=== PATIENT | female | born 1935 | race Caucasian/White ===

== ENCOUNTER 2020-05-25 17:27 | Inpatient (IN) ==
--- NOTE | 2020-05-25 18:14 | Emergency Department Note ---
History of Present Illness General Chief complaint: Fall Stated complaint: shoulder pain Time Seen by Provider: 05/25/20 17:58 Source: patient and family (Daughter who is at the bedside) Mode of arrival: ambulatory Limitations: other (He does have a history of dementia) History of Present Illness This patient is an 84-year-old female who lives at home with her , comes in after falling. She was hanging up her coat and fell. They found her on the floor they heard a scream and there was a TV on top of her. She is only complaint of shoulder pain she may have hit her head and her face to the do not think she lost consciousness but it was unwitnessed. She said no recent illness. No chest pain shortness of breath or abdominal pain. No focal numbness or weakness she is had Covid vaccine x2. No recent illness prior. Home Medications Medication Instructions Recorded Confirmed Type docusate sodium 50 mg PO DAILY 05/25/20 05/25/20 History lisinopril 10 mg PO DAILY 05/25/20 05/25/20 History meclizine 25 mg PO TID PRN 05/25/20 05/25/20 History metoprolol succinate 25 mg PO DAILY 05/25/20 05/25/20 History multivitamin 1 tab PO DAILY 05/25/20 05/25/20 History simvastatin 20 mg PO HS 05/25/20 05/25/20 History verapamil 180 mg PO DAILY 05/25/20 05/25/20 History warfarin 2 mg PO 4XWK 05/25/20 05/25/20 History warfarin 3 mg PO 3XWK 05/25/20 05/25/20 History Allergies Allergy/AdvReac Type Severity Reaction Status Date / Time Sulfa (Sulfonamide Allergy Intermediate Hives Verified 05/25/20 18:27 Antibiotics) Penicillins Allergy Unknown rash Verified 05/25/20 18:27 Past Med/Surg History Medical History (Updated 05/25/20 @ 22:42 by Pa Capellan MD) Degenerative arthritis of knee, bilateral Social History Smoking Status: Former smoker Tobacco Type: Cigarettes Feels Safe at Home: Yes Review of Systems Unobtainable due to cognitive status Physical Exam Vital Signs Vital Signs - 24 hr 05/25/20 17:35 05/25/20 18:20 05/25/20 20:00 Temperature 36.6 C Temperature Source Oral Pulse Rate 58 L 68 Pulse Rate from SpO2 Sensor 71 Respiratory Rate 16 17 Blood Pressure 170/30 H 187/77 H Blood Pressure Mean 76 113 Blood Pressure Position Lying Pulse Oximetry 97 98 90 Oxygen Delivery Method Room Air Room Air Room Air Sepsis Recent Fever Within 48 Hours No Sepsis New/Unexplained Change in Mental Status No Sepsis Action Taken by Nursing No Action Required 05/25/20 20:30 05/25/20 21:00 05/25/20 21:05 Temperature Temperature Source Pulse Rate 69 73 69 Pulse Rate from SpO2 Sensor 68 Respiratory Rate 14 20 17 Blood Pressure 105/59 L 136/112 H 154/67 H Blood Pressure Mean 74 120 96 Blood Pressure Position Pulse Oximetry 94 94 97 Oxygen Delivery Method Room Air Room Air Room Air Sepsis Recent Fever Within 48 Hours Sepsis New/Unexplained Change in Mental Status Sepsis Action Taken by Nursing 05/25/20 21:30 05/25/20 21:47 05/25/20 22:31 Temperature Temperature Source Pulse Rate 60 67 59 L Pulse Rate from SpO2 Sensor 59 L Respiratory Rate 15 19 15 Blood Pressure 150/61 H 150/61 H 173/28 H Blood Pressure Mean 90 90 76 Blood Pressure Position Pulse Oximetry 96 96 96 Oxygen Delivery Method Room Air Room Air Room Air Sepsis Recent Fever Within 48 Hours Sepsis New/Unexplained Change in Mental Status Sepsis Action Taken by Nursing General: Well developed well nourished older female has baseline dementia and is able answer questions but not reliably due to memory issues in no acute distress, breathing comfortably on room air. Normal speech HEENT: Normal cephalic atraumatic. Pupils are equal round and reactive to light. Extraocular movements are intact. Oropharynx is pink with moist mucous membranes. No swelling of the mouth lips or tongue. Neck: Supple with a midline trachea. No meningeal signs or stiffness, no JVD or bruits. No Stridor. Chest: Clear to auscultation bilaterally. No wheezes or rhonchi. No increased work of breathing. Heart: Regular rate and rhythm without murmurs or gallops. Abdomen: Soft nontender, nondistended without rebound guarding or rigidity. Extremities: No cyanosis clubbing or edema. No calf tenderness or assymetry. The shoulder is swollen on the right and has pain with movement. Distally, she has neurologic and neurovascular intact Spine/Back. Non tender to palpation. No CVA tenderness Skin: Good turgor without rashes. Neurologic exam: Cranial nerves two through 12 are intact. Motor and sensation are intact and symmetrical throughout. Course Administered Medications Discontinued Medications Morphine Sulfate (Morphine Sulfate 4 Mg/Ml 1 Ml Carp\Vial) 4 mg IV NOW STA Stop: 05/25/20 18:36 Last Admin: 05/25/20 18:51 Dose: 4 mg Documented by: [id number] Morphine Sulfate (Morphine Sulfate 4 Mg/Ml 1 Ml Carp\Vial) 4 mg IV NOW STA Stop: 05/25/20 20:58 Last Admin: 05/25/20 21:01 Dose: 4 mg Documented by: [id number] Ondansetron HCl (Ondansetron Inj 2 Mg/Ml 2 Ml Vial) 4 mg IV NOW STA Stop: 05/25/20 18:36 Last Admin: 05/25/20 18:51 Dose: 4 mg Documented by: [id number] Medical Decision Making Differential Diagnosis Trauma, electrolyte or metabolic abnormality, shoulder fracture, dislocation, syncope, arrhythmia, intracranial hemorrhage Medical Records Attestation: I reviewed the patient's medical records. Home Medications Current Medication List: was personally reviewed by me Laboratory Data Attestation: I reviewed the patient's lab results. Result diagrams: 05/25/20 18:44 05/25/20 18:44 Lab Results 05/25/20 05/25/20 05/25/20 Range/Units 18:44 18:44 18:44 WBC 9.11 (4.8-10.8) K/uL RBC 4.08 L (4.2-5.4) M/uL Hgb 13.0 (12.0-16.0) g/dL Hct 38.4 (37-47) % MCV 94.1 (80-100) fL MCH 31.9 (25-34) pg MCHC 33.9 (32-36) g/dL RDW Std Deviation 46.9 H (36.4-46.3) fL RDW Coeff of Ranjit 13.6 (11.5-14.5) % Plt Count 187 (130-400) K/uL MPV 10.4 (7.4-10.4) fL Immature Gran % (Auto) 0.2 % Neut % (Auto) 79.0 % Lymph % (Auto) 14.6 % [place] % (Auto) 5.4 % Eos % (Auto) 0.7 % Baso % (Auto) 0.1 % Neut # (Auto) 7.20 H (1.4-6.5) K/uL Lymph # (Auto) 1.33 (1.2-3.4) K/uL [place] # (Auto) 0.49 (0.11-0.59) K/uL Eos # (Auto) 0.06 (0-0.5) K/uL Baso # (Auto) 0.01 (0-0.2) K/uL Immature Gran # (Auto) 0.02 (0.00-0.02) K/uL PT 19.8 H (9.0-12.0) Seconds INR 2.1 H (0.9-1.1) APTT 28.2 (21.0-31.0) Seconds PTT Ratio 1.1 Sodium 141 (136-145) mmol/L Potassium 4.6 (3.5-5.1) mmol/L Chloride 110 H (98-107) mmol/L Carbon Dioxide 26 (21-32) mmol/L Anion Gap 5.0 (3-11) BUN 36 H (7-18) mg/dl Creatinine 1.23 H (0.6-1.2) mg/dl Est Cr Clr Drug Dosing 31.7 ml/min Est GFR ( Amer) 46.3 Est GFR (Non-Af Amer) 40.0 BUN/Creatinine Ratio 28.9 H (10-20) Glucose 109 H (70-99) mg/dl Calcium 9.5 (8.5-10.1) mg/dl Total Bilirubin 0.3 (0.2-1) mg/dl AST 17 (15-37) U/L ALT 21 (12-78) U/L Alkaline Phosphatase 57 (45-117) U/L Troponin I < 0.015 (0-0.045) ng/ml Total Protein 7.0 (6.4-8.2) gm/dl Albumin 3.6 (3.4-5.0) gm/dl Globulin 3.4 (2.5-4.0) gm/dl Albumin/Globulin Ratio 1.1 (0.9-2) Lipase 198 (73-393) U/L COVID-19 Eval Order SARS-CoV-2, RNA, NAAT (NEGATIVE) 05/25/20 05/25/20 Range/Units 21:46 21:46 WBC (4.8-10.8) K/uL RBC (4.2-5.4) M/uL Hgb (12.0-16.0) g/dL Hct (37-47) % MCV (80-100) fL MCH (25-34) pg MCHC (32-36) g/dL RDW Std Deviation (36.4-46.3) fL RDW Coeff of Ranjit (11.5-14.5) % Plt Count (130-400) K/uL MPV (7.4-10.4) fL Immature Gran % (Auto) % Neut % (Auto) % Lymph % (Auto) % [place] % (Auto) % Eos % (Auto) % Baso % (Auto) % Neut # (Auto) (1.4-6.5) K/uL Lymph # (Auto) (1.2-3.4) K/uL [place] # (Auto) (0.11-0.59) K/uL Eos # (Auto) (0-0.5) K/uL Baso # (Auto) (0-0.2) K/uL Immature Gran # (Auto) (0.00-0.02) K/uL PT (9.0-12.0) Seconds INR (0.9-1.1) APTT (21.0-31.0) Seconds PTT Ratio Sodium (136-145) mmol/L Potassium (3.5-5.1) mmol/L Chloride (98-107) mmol/L Carbon Dioxide (21-32) mmol/L Anion Gap (3-11) BUN (7-18) mg/dl Creatinine (0.6-1.2) mg/dl Est Cr Clr Drug Dosing ml/min Est GFR ( Amer) Est GFR (Non-Af Amer) BUN/Creatinine Ratio (10-20) Glucose (70-99) mg/dl Calcium (8.5-10.1) mg/dl Total Bilirubin (0.2-1) mg/dl AST (15-37) U/L ALT (12-78) U/L Alkaline Phosphatase (45-117) U/L Troponin I (0-0.045) ng/ml Total Protein (6.4-8.2) gm/dl Albumin (3.4-5.0) gm/dl Globulin (2.5-4.0) gm/dl Albumin/Globulin Ratio (0.9-2) Lipase (73-393) U/L COVID-19 Eval [facility] SARS-CoV-2, RNA, NAAT NEGATIVE (NEGATIVE) Imaging Data Attestation: I personally reviewed and interpreted this imaging study as follows: ECG Data Indication: + syncope and + weakness Rate (beats per minute): 64 Rhythm: + normal sinus ECG Intervals/blocks: + Normal QRS, + Normal QT and + Normal DE ECG [place]: + Normal ECG ST segments: + Normal ST segments ECG Findings: + Poor R wave progression Comparison ECG Date: no prior available MDM Narrative This patient comes in described above. She suffered a fall she is on Coumadin her main complaint is shoulder pain she has some obvious swelling. IV access was established. he had been given pain medication on route. She appears co mfortable unless I move the arm. Given the fact she is on Coumadin hit her head I did do a CAT scan of the head neck and face as well as labs and EKG and x-ray. She was reassessed frequently. He did require IV morphine 4 mg several times while she was here which did seem to work well until it wore off and she had more pain. I did a portable x-ray of her humerus and she has a humeral neck fracture with displacement of the fracture. I did look at this at the bedside while redoing the x-ray it showed the daughter who is an orthopedic nurse. We did place her in a sling. CAT scan of the head neck and face were unremarkable. Her INR is 2.1. EKG does not suggest ischemia or arrhythmia. Troponin is not elevated. she has no significant electrolyte or metabolic abnormalities. The patient is followed by Dr. Brandon from orthopedics and I called and talked to Dr. Paez who is covering for Dr. Brandon. He did call and talk to Dr. Brandon who will see the patient in the hospital tomorrow. I did consult Dr. Cordoba who is on for medicine to see her given the fact that she fell and was unwitnessed it was possible syncopal. She is going to hold her Coumadin tonight as she is on this for A. fib and in the event that she could have surgery in the next day or so. Daughter was happy with the plan and she will be admitted for these measures Continuous cardiac monitoring: Order was placed in the EMR for continuous monitoring. The patient was noted to be in normal sinus rhythm with a pulse of 60. Impression & Plan Fracture, humerus, Fall, Anticoagulant long-term use, Dementia, COVID-19 ruled out by laboratory testing Discharge Plan Visit Data Chief Complaint: Fall Stated Complaint: shoulder pain ED Provider: aP Capellan Discharge Problem: Fracture, humerus, Fall, Anticoagulant long-term use, Dementia, COVID-19 ruled out by laboratory testing Patient Disposition: Admitted As Inpatient Forms Stand Alone Forms: [facility] Prescriptions Prescriptions: No Action multivitamin Tablet 1 tab PO DAILY RF: 0 verapamil 180 mg tablet extended release 180 mg PO DAILY RF: 0 docusate sodium 50 mg Capsule 50 mg PO DAILY RF: 0 meclizine 25 mg Tablet 25 mg PO TID PRN (Reason: Dizziness) RF: 0 simvastatin 20 mg tablet 20 mg PO HS RF: 0 lisinopril 10 mg tablet 10 mg PO DAILY RF: 0 warfarin 2 mg tablet 2 mg PO 4XWK RF: 0 warfarin 2 mg tablet 3 mg PO 3XWK RF: 0 metoprolol succinate 25 mg tablet extended release 24 hr 25 mg PO DAILY RF: 0 Referrals Referrals: Asmita Wasserman DO [Primary Care Provider] - Discharge Problem: Fracture, humerus Qualifiers: Encounter type: initial encounter Humerus Location: surgical neck Fracture type: closed Fracture morphology: unspecified fracture morphology Fracture alignment: displaced Laterality: right Qualified Code(s): S42.211A - Unspecified displaced fracture of surgical neck of right humerus, initial encounter for closed fracture Fall Qualifiers: Encounter type: initial encounter Qualified Code(s): W19.XXXA - Unspecified fall, initial encounter Dementia Qualifiers: Dementia type: unspecified type Dementia behavioral disturbance: without behavioral disturbance Qualified Code(s): F03.90 - Unspecified dementia without behavioral disturbance
[2020-05-25] MEDS ORDERED: MoRPHine SULFATE 4 MG/ML 1 ML CARP\\VIAL IV STA ×2 (18:35→20:57)
[2020-05-25] MEDS ORDERED: ONDANSETRON INJ 2 MG/ML 2 ML VIAL IV STA (18:35)
--- NOTE | 2020-05-25 18:36 | XRay Report ---
XR chest 1V portable CLINICAL HISTORY: Atypical chest pain COMPARISON STUDY: 01/26/2015 FINDINGS: The heart is the upper limits of normal in size. There is aortic tortuosity. There is no fa ilure. There is no focal pulmonary consolidation. There are no pleural effusions. There is an acute p roximal right humeral fracture.[ IMPRESSION: 1. No active disease in the chest 2. Acute displaced right humeral neck fracture. ACT 112: Negative or not required by law. Electronically signed by: Teto Garber M.D. 05/25/2020 6:34 PM
--- NOTE | 2020-05-25 18:36 | XRay Report ---
XR shoulder RT min 2V routine CLINICAL HISTORY: Right shoulder pain status post trauma COMPARISON: None. DISCUSSION: There is an acute displaced right humeral neck fracture. No dislocation is visualized the provided images. IMPRESSION: Acute displaced right humeral neck fracture ACT 112: Negative or not required by law. Electronically signed by: Teto Garber M.D. 05/25/2020 6:35 PM
[2020-05-25 18:59] LABS: Basophils # (auto) 0.01 K/uL (0-0.2); Basophils % (auto) 0.1 %; Eosinophils # (auto) 0.06 K/uL (0-0.5); Eosinophils % (auto) 0.7 %; Hematocrit (blood only) 38.4 % (37-47); Immature Granulocytes # (auto) 0.02 K/uL (0.00-0.02); Immature Granulocytes % (auto) 0.2 %; Lymphocytes # (auto) 1.33 K/uL (1.2-3.4); Lymphocytes % (auto) 14.6 %; Mean Corpuscular Hemoglobin 31.9 pg (25-34); Mean Corpuscular Hgb Conc 33.9 g/dL (32-36); Mean Corpuscular Volume 94.1 fL (80-100); Mean Platelet Volume 10.4 fL (7.4-10.4); Monocytes # (auto) 0.49 K/uL (0.11-0.59); Monocytes % (auto) 5.4 %; Platelet Count 187 K/uL (130-400); RDW Coefficient of Variation 13.6 % (11.5-14.5); RDW Standard Deviation 46.9 fL (36.4-46.3); Red Blood Count 4.08 M/uL (4.2-5.4); White Blood Count 9.11 K/uL (4.8-10.8)
[2020-05-25 19:11] LABS: INR 2.1 (0.9-1.1); Partial Thromboplastin Ratio 1.1; Partial Thromboplastin Time 28.2 Seconds (21.0-31.0); Prothrombin Time 19.8 Seconds (9.0-12.0)
--- NOTE | 2020-05-25 19:13 | CT Scan Report ---
CT head/brain wo con CLINICAL HISTORY: Head pain status post trauma COMPARISON STUDY: No previous studies for comparison. TECHNIQUE: Axial CT of the brain is performed from the vertex to the skull base. IV contrast was not administered for this examination. A dose lowering technique was utilized adhering to the principles of ALARA. CT DOSE: FINDINGS: No intra or extra-axial mass lesions are visualized. There is no CT evidence of acute cortical infarc tion. There is no evidence of midline shift. There is no acute hemorrhage. No calvarial fractures ar e visualized. There are patchy white matter hypodensities likely on a small vessel basis. There is no evidence of pathologic ventricular dilatation. There is mucosal fluid/thickening within the right maxillary sinus. IMPRESSION: No acute intracranial findings ACT 112: Negative or not required by law. Electronically signed by: Teto Garber M.D. 05/25/2020 7:12 PM
--- NOTE | 2020-05-25 19:15 | CT Scan Report ---
CT OF THE CERVICAL SPINE CLINICAL HISTORY: Neck pain status post trauma COMPARISON STUDY: No previous studies for comparison. CT DOSE: 1097.27 mGy.cm TECHNIQUE: CT scan of the cervical spine was performed from the skull base to the thoracic inlet. Rhona ges are reviewed in the axial, sagittal, and coronal planes. IV contrast was not administered for thi s examination. A dose lowering technique was utilized adhering to the principles of ALARA. FINDINGS: The visualized portions of the lung apices reveal no evidence of pneumothorax. The prevertebral soft tissues are normal. No fractures or subluxations are visualized. There is moderate multilevel degenerative change with multilevel spinal stenosis and multilevel reyes inal narrowing. IMPRESSION: No evidence of acute fracture or traumatic subluxation. ACT 112: Negative or not required by law. Electronically signed by: Teto Garber M.D. 05/25/2020 7:13 PM
--- NOTE | 2020-05-25 19:17 | CT Scan Report ---
CT facial bones wo con CT DOSE: CLINICAL HISTORY: Facial pain status post trauma COMPARISON STUDY: No previous studies for comparison. TECHNIQUE: Helical images were acquired in the transverse plane. The study was reviewed and analyzed on the independent 3-D workstation. A dose lowering technique was utilized adhering to the principle s of ALARA. The pterygoid plates appear intact. The zygomatic arches appear intact. The globes appear intact. There is no evidence of orbital emphysema. The orbital sanders and floor appear intact. The mandibular condyles appear intact. Arthritic changes are present within the TMJs. There are inflammatory changes within the right maxillary sinus. IMPRESSION: No facial fractures identified. ACT 112: Negative or not required by law. Electronically signed by: Teto Garber M.D. 05/25/2020 7:16 PM
[2020-05-25 19:23] LABS: Albumin Level 3.6 gm/dl (3.4-5.0); Aspartate Aminotransferase 17 U/L (15-37); BUN Creatinine Ratio 28.9 (10-20); Blood Urea Nitrogen 36 mg/dl (7-18); Calcium 9.5 mg/dl (8.5-10.1); Carbon Dioxide 26 mmol/L (21-32); Chloride 110 mmol/L (98-107); Creatinine Clr Calc Pharmacy 31.7 ml/min; Est GFR (African American) 46.3; Glucose 109 mg/dl (70-99); Lipase 198 U/L (73-393); Potassium 4.6 mmol/L (3.5-5.1); Sodium 141 mmol/L (136-145)
[2020-05-25 19:28] LABS: Alanine Aminotransferase 21 U/L (12-78); Albumin Globulin Ratio 1.1 (0.9-2); Alkaline Phosphatase 57 U/L (45-117); Bilirubin,Total 0.3 mg/dl (0.2-1); Globulin 3.4 gm/dl (2.5-4.0); Troponin I < 0.015 ng/ml (0-0.045)
--- NOTE | 2020-05-25 22:35 | History and Physical Report ---
DATE OF ADMISSION: 05/25/2020 CHIEF COMPLAINT: Status post fall and right humerus fracture. 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 She lives with her . She walks without any support as per the daughter. She was hanging up her coat and fell. They found her on the floor and there was TV on top of her. Her only complaint was shoulder pain. No loss of consciousness. In the imaging studies in the ER, CT of the head, facial CT, cervical spine CT, chest x-ray and shoulder x-ray was done showing acute displaced right humeral neck fracture. Rest of the imaging studies were okay. She is on Coumadin and INR is 2.1. ER talked to orthopedics and they want to hold Coumadin and will be evaluated in the a.m. The patient's only complaint is pain in the right shoulder and arm region. She was also placed on morphine and she was hard of hearing and also has dementia. All questions were answered by the daughter. As per daughter she has dementia, but she can walk for about 1-2 blocks and also can climb steps okay. No recent fever, chills. No cough, no nausea, no abdominal pain, no complaint of chest pain or abdominal pain, no shortness of breath, no diarrhea. Otherwise, appetite is good. She is sleeping okay. ALLERGIES: SULFA ANTIBIOTICS, PENICILLIN. PAST MEDICAL HISTORY: As mentioned above. PAST SURGICAL HISTORY: Colonoscopy with biopsy, removal of oviducts, cataract surgery, total hysterectomy. MEDICATIONS: The patient is on Colace 100 mg p.o. daily, lisinopril 10 mg p.o. daily, meclizine 25 mg p.o. t.i.d. p.r.n., metoprolol succinate 25 mg p.o. daily, multivitamin 1 tablet p.o. daily, simvastatin 20 mg p.o. at bedtime, verapamil 180 mg p.o. daily, Coumadin 2 mg 4 times a week and 3 mg 3 times a week. FAMILY HISTORY: Significant for father had COPD. Mother had stroke. SOCIAL HISTORY: , lives with . No smoking. Alcohol occasionally. No drug use. REVIEW OF SYSTEMS: As per HPI. Could not complete review of systems as patient is somewhat confused at this time. PHYSICAL EXAMINATION: VITAL SIGNS: Temperature 36.6, pulse 69, respirations 17, blood pressure 154/67, oxygen 97% on room air. HEENT: Slight bruise on the right brow region. Pupils equal, round, and reactive to light. Oral mucosa dry. NECK: No JVD or neck masses. CARDIOVASCULAR: S1, S2 heard. Ejection murmur, systolic murmur in the aortic area. No gallop. RESPIRATORY SYSTEM: Normal AP diameter. No accessory muscle use. No wheezing, no crackles. ABDOMEN: Soft, bowel sounds present, nontender. No distention. CENTRAL NERVOUS SYSTEM: Alert and awake. Obeys simple commands. No facial droop. Speech is clear. EXTREMITIES: No edema, no erythema in lower extremities seen, right upper extremity is flexed. LABORATORY DATA: WBC 9.1, hemoglobin 13, hematocrit 38.4, platelets 187. PT 19.8, INR 2.1. Sodium 141, potassium 4.6, chloride 110, bicarbonate 26, BUN 36, creatinine 1.2, serum glucose 109, calcium 9.5, total bilirubin 0.3, AST 17, ALT 21, alkaline phosphatase 57. Troponin I less than 0.015. Lipase 198. Chest x-ray, no acute disease in the chest, acute displaced right humeral fracture. CT of the head, no acute intracranial findings. Facial CT, no facial fractures identified. Cervical spine CT, no evidence of acute fracture or traumatic subluxation. Shoulder x-ray, acute displaced right humeral fracture. EKG: Normal sinus rhythm with rate of 64, no acute ST changes seen. ASSESSMENT AND PLAN: This is an 84-year-old female who presents with mechanical fall and right humerus fracture. 1. Mechanical fall, right humerus, acute displaced right humeral neck fracture. Plan for sling. Pain control. We will keep her n.p.o., IV fluids, and consult orthopedics for further recommendation. PT and OT when stable. 2. Atrial fibrillation. Continue metoprolol and verapamil. We will hold Coumadin for possible procedures. INR is 2.1. Follow PT/INR daily. 3. Hyperlipidemia. Continue statin. 4. Alzheimer dementia, monitor for any delirium. Daughter wants to stay in the patient's room. 5. Hypertension. Continue lisinopril, verapamil and metoprolol. Monitor blood pressure. 6. Hyperlipidemia, on statin. 7. Chronic diastolic congestive heart failure. Getting gentle fluids, not on diuretics. Monitor for volume overload. 8. Chronic constipation, stool softeners as needed. 9. Deep venous thrombosis prophylaxis, sequential compression devices for now. 10. Disposition: Closely monitor in medical floor. PT and OT prior to discharge. Social service to help with discharge planning. Level 1 full code as per discussion with daughter. JOSSELYN
[2020-05-25] MEDS ORDERED: D5W AND NSS 1,000 ML IV SCH (22:58)
[2020-05-25] MEDS ORDERED: ACETAMINOPHEN 325 MG TAB PO PRN (22:58)
[2020-05-25] MEDS ORDERED: ONDANSETRON INJ 2 MG/ML 2 ML VIAL IV PRN (22:58)
[2020-05-25] MEDS: HYDROmorphone INJ 0.5 MG/0.5 ML SYR IV PRN (23:10)
[2020-05-25] MEDS ORDERED: MECLIZINE HCL 25 MG TAB PO PRN (23:16)
[2020-05-26] MEDS: HYDROmorphone INJ 0.5 MG/0.5 ML SYR IV PRN ×6 (01:55→23:21)
[2020-05-26 05:32] LABS: Basophils # (auto) 0.02 K/uL (0-0.2); Basophils % (auto) 0.2 %; Eosinophils # (auto) 0.02 K/uL (0-0.5); Eosinophils % (auto) 0.2 %; Hematocrit (blood only) 35.4 % (37-47); Hemoglobin 11.9 g/dL (12.0-16.0); Immature Granulocytes # (auto) 0.04 K/uL (0.00-0.02); Immature Granulocytes % (auto) 0.4 %; Lymphocytes # (auto) 1.12 K/uL (1.2-3.4); Lymphocytes % (auto) 11.9 %; Mean Corpuscular Hemoglobin 31.6 pg (25-34); Mean Corpuscular Hgb Conc 33.6 g/dL (32-36); Mean Corpuscular Volume 93.9 fL (80-100); Monocytes # (auto) 0.93 K/uL (0.11-0.59); Monocytes % (auto) 9.9 %; Neutrophils # (auto) 7.29 K/uL (1.4-6.5); Neutrophils % (auto) 77.4 %; Platelet Count 166 K/uL (130-400); RDW Coefficient of Variation 13.6 % (11.5-14.5); RDW Standard Deviation 46.7 fL (36.4-46.3); Red Blood Count 3.77 M/uL (4.2-5.4); White Blood Count 9.42 K/uL (4.8-10.8)
[2020-05-26 05:47] LABS: INR 2.2 (0.9-1.1); Prothrombin Time 20.7 Seconds (9.0-12.0)
[2020-05-26 05:49] LABS: BUN Creatinine Ratio 25.8 (10-20); Calcium 8.7 mg/dl (8.5-10.1); Est GFR (African American) 50.2; Est GFR (Non-African American) 43.4; Potassium 4.4 mmol/L (3.5-5.1)
[2020-05-26] MEDS: MULTIVITAMIN TAB PO SCH (08:27)
[2020-05-26] MEDS: METOPROLOL SUCC 25MG EXT REL TAB PO SCH (08:27)
[2020-05-26] MEDS: VERAPAMIL HCL 180 MG TABCR PO SCH (08:27)
[2020-05-26] MEDS: lisinopril 10 MG TAB PO SCH (08:27)
[2020-05-26] MEDS: DOCUSATE SODIUM SYRUP 100 MG/10 ML UDC PO SCH (08:27)
--- NOTE | 2020-05-26 10:08 | Electrocardiogram Report ---
Test Reason : Blood Pressure : / mmHG Vent. Rate : 064 BPM Atrial Rate : 064 BPM P-R Int : 202 ms QRS Dur : 074 ms QT Int : 390 ms P-R-T Axes : 033 053 050 degrees QTc Int : 402 ms Poor data quality, interpretation may be adversely affected Normal sinus rhythm Septal infarct , age undetermined vs lead placement Abnormal ECG No previous ECGs available Confirmed by Christopher Azevedo ([id number]) on 05/26/2020 10:07:37 AM Referred By: REFERRED SELF Confirmed By:Christopher Azevedo
[2020-05-26] MEDS ORDERED: PHYTONADIONE 5 MG in SODIUM CHLORIDE 0.9% 50 ML IV ONE (10:15)
--- NOTE | 2020-05-26 10:22 | Orthopedic Consultation ---
Date of Service May 26, 2020 Assessment & Plan (1) Fracture, humerus: Patient has a completely displaced proximal humerus fracture. She has been admitted by the medicine service and she will be medically optimized. We will get a need to reverse her INR to a limit blood loss. Talk to the hospitalist today by giving her some vitamin K and will check a PT and INR tomorrow. Will likely fix this on Thursday. There were segments of ORIF of a proximal humerus fracture were explained to the patient and her caregiver/daughter. They like to proceed. Informed consent was obtained. In the meantime we will keep her in the sling. She can eat today and Thursday and make her n.p.o. after midnight on Thursday night. We will had to the OR schedule for Thursday. History of Present Illness Reason for Consultation: . Right proximal humerus fracture. Requesting Physician: . Attending Physician: Greer Blue MD . Patient is an 84-year-old female with multiple medical comorbidities most specifically chronic atrial fibrillation, hypertension, elevated cholesterol, and underlying dementia who sustained a fall yesterday at home. This is not witnessed but they found her on the floor. She had acute onset of pain in her shoulder. She is brought to emergency room where x-rays revealed a displaced proximal humerus fracture. She was admitted by the hospitalist service for pain control. There were no other injuries. She did have an extensive work-up which showed no signs of head injury or neck problems. She describes isolated shoulder pain. No pre-existing shoulder problems. Allergies Allergy/AdvReac Type Severity Reaction Status Date / Time Sulfa (Sulfonamide Allergy Intermediate Hives Verified 05/25/20 18:27 Antibiotics) Penicillins Allergy Unknown rash Verified 05/25/20 18:27 Home Medications Medication Instructions Recorded Confirmed Type docusate sodium 50 mg PO DAILY 05/25/20 05/25/20 History lisinopril 10 mg PO DAILY 05/25/20 05/25/20 History meclizine 25 mg PO TID PRN 05/25/20 05/25/20 History metoprolol succinate 25 mg PO DAILY 05/25/20 05/25/20 History multivitamin 1 tab PO DAILY 05/25/20 05/25/20 History simvastatin 20 mg PO HS 05/25/20 05/25/20 History verapamil 180 mg PO DAILY 05/25/20 05/25/20 History warfarin 2 mg PO 4XWK 05/25/20 05/25/20 History warfarin 3 mg PO 3XWK 05/25/20 05/25/20 History Past Med/Surg History Medical History Degenerative arthritis of knee, bilateral Social History Smoking Status: Never smoker Tobacco Type: Cigarettes Hx Alcohol Use: No Hx Substance Use: No Preferred Language: Macedonian Communication Ability: Effective 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 Physical Exam . Physical examination reveals a pleasant slightly demented elderly female. Sitting up in bed looks reasonably comfortable. Her daughter side her bedside. General musculoskeletal exam reveals no tenderness to her neck thoracic spine or lumbar spine. She has no pain with lower extremity motion or left upper extremity motion. Examination of the right arm reveals a be in a sling. Everything is well aligned. Some moderate soft tissue swelling proximally. No breaks in the skin. She can extend flex extend her fingers and wrist appropriately. She got brisk refill with a good distal pulse. Results & Data Results & Data Laboratory Results . Diagnostic Findings . X-rays of the right shoulder reveal a completely displaced 2 part proximal humerus fracture. No signs of underlying shoulder arthritis. CT scans of the head neck and face were reviewed. All negative. PG Care Time/CCT Total # of Minutes Spent Total Time Spent with Patient: Total time spent is greater than 50% in c oordination of care (as documented) at patient's floor/unit and/or counseling patient: Coding Level of Care Code 75110 Inpt Consult Level 4 Diagnoses Fracture, humerus S42.211A Encounter type: initial encounter Fracture alignment: displaced Fracture morphology: unspecified fracture morphology Fracture type: closed Humerus Location: surgical neck Laterality: right (1) Fracture, humerus Encounter type: initial encounter Fracture alignment: displaced Fracture morphology: unspecified fracture morphology Fracture type: closed Humerus Location: surgical neck Laterality: right Qualified Code(s): S42.211A - Unspecified displaced fracture of surgical neck of right humerus, initial encounter for closed fracture
--- NOTE | 2020-05-26 10:35 | Hospitalist Progress Note ---
Date of Service May 26, 2020 Assessment & Plan (1) Fall: (2) Fracture, humerus: Fall at home with right humeral fracture. Shoulder x-ray showed acute displaced right humeral neck fracture. Continue sling Pain control Discussed with orthopedic surgeon. He would like to do surgery to fix the fracture on Thursday. Will need reversal of INR for that. Give IV vitamin K 5 mg We will check INR in the morning Diet resume. Discontinue IV fluids We will keep n.p.o. tomorrow night after midnight (3) Dementia: Redirect as needed Nursing care (4) Paroxysmal atrial fibrillation: Warfarin on hold for surgery We will resume postop (5) Hypertension: Continue home lisinopril and verapamil (6) DVT prophylaxis: Warfarin on hold for now for surgery Continue SCD Call to daughter's number to update her was unanswered. Will try again later Admission and Anticipated Discharge Date Admission Date: May 25, 2020 Subjective Patient seen and examined Patient awake and alert, pleasant but demented Not able to provide any history Acknowledges pain on the right arm. Review of Systems Review of Systems: Unobtainable due to cognitive status Physical Exam Constitutional: + well hydrated; no acute distress Pleasant Eyes: PERRL, conjunctivae normal, anicteric sclerae ENMT: external ear and nose normal, oropharynx normal Respiratory: normal respiratory effort, lungs clear to auscultation Cardiovascular: Rate/Rhythm: regular rate and regular rhythm S1-S2, no pedal edema Gastrointestinal (Abdomen): normal bowel sounds, soft, nontender, no hepatosplenomegaly Musculoskeletal: Right upper extremity in sling Neurologic: Patient is awake, alert, oriented to person only Significant dementia. Not able to provide any history. Follow simple commands Results & Data Results & Data ([facility]) Vital Signs (Past 12 Hours) Vital Signs Temp Pulse Resp BP Pulse Ox 05/26/20 07:33 36.7 C 73 16 159/68 H 96 05/25/20 23:46 165/68 H 05/25/20 23:34 36.8 C 66 22 195/68 H 97 Laboratory Results Laboratory Results - last 24 hr 05/25/20 05/25/20 05/25/20 18:44 18:44 18:44 WBC 9.11 RBC 4.08 L Hgb 13.0 Hct 38.4 MCV 94.1 MCH 31.9 MCHC 33.9 RDW Std Deviation 46.9 H RDW Coeff of Ranjit 13.6 Plt Count 187 MPV 10.4 Immature Gran % (Auto) 0.2 Neut % (Auto) 79.0 Lymph % (Auto) 14.6 Morehouse % (Auto) 5.4 Eos % (Auto) 0.7 Baso % (Auto) 0.1 Neut # (Auto) 7.20 H Lymph # (Auto) 1.33 Morehouse # (Auto) 0.49 Eos # (Auto) 0.06 Baso # (Auto) 0.01 Immature Gran # (Auto) 0.02 PT 19.8 H INR 2.1 H APTT 28.2 PTT Ratio 1.1 Sodium 141 Potassium 4.6 Chloride 110 H Carbon Dioxide 26 Anion Gap 5.0 BUN 36 H Creatinine 1.23 H Est Cr Clr Drug Dosing 31.7 Est GFR ( Amer) 46.3 Est GFR (Non-Af Amer) 40.0 BUN/Creatinine Ratio 28.9 H Glucose 109 H Calcium 9.5 Magnesium Total Bilirubin 0.3 AST 17 ALT 21 Alkaline Phosphatase 57 Troponin I < 0.015 Total Protein 7.0 Albumin 3.6 Globulin 3.4 Albumin/Globulin Ratio 1.1 Lipase 198 COVID-19 Eval Order SARS-CoV-2, RNA, NAAT 05/25/20 05/25/20 05/26/20 21:46 21:46 05:19 WBC RBC Hgb Hct MCV MCH MCHC RDW Std Deviation RDW Coeff of Ranjit Plt Count MPV Immature Gran % (Auto) Neut % (Auto) Lymph % (Auto) [place]house % (Auto) Eos % (Auto) Baso % (Auto) Neut # (Auto) Lymph # (Auto) Morehouse # (Auto) Eos # (Auto) Baso # (Auto) Immature Gran # (Auto) PT 20.7 H INR 2.2 H APTT PTT Ratio Sodium Potassium Chloride Carbon Dioxide Anion Gap BUN Creatinine Est Cr Clr Drug Dosing Est GFR ( Amer) Est GFR (Non-Af Amer) BUN/Creatinine Ratio Glucose Calcium Magnesium Total Bilirubin AST ALT Alkaline Phosphatase Troponin I Total Protein Albumin Globulin Albumin/Globulin Ratio Lipase COVID-19 Eval [facility] SARS-CoV-2, RNA, NAAT NEGATIVE 05/26/20 05/26/20 05:19 05:19 WBC 9.42 RBC 3.77 L Hgb 11.9 L Hct 35.4 L MCV 93.9 MCH 31.6 MCHC 33.6 RDW Std Deviation 46.7 H RDW Coeff of Ranjit 13.6 Plt Count 166 MPV 10.0 Immature Gran % (Auto) 0.4 Neut % (Auto) 77.4 Lymph % (Auto) 11.9 Morehouse % (Auto) 9.9 Eos % (Auto) 0.2 Baso % (Auto) 0.2 Neut # (Auto) 7.29 H Lymph # (Auto) 1.12 L Morehouse # (Auto) 0.93 H Eos # (Auto) 0.02 Baso # (Auto) 0.02 Immature Gran # (Auto) 0.04 H PT INR APTT PTT Ratio Sodium 139 Potassium 4.4 Chloride 111 H Carbon Dioxide 24 Anion Gap 4.0 BUN 30 H Creatinine 1.15 Est Cr Clr Drug Dosing 34.0 Est GFR ( Amer) 50.2 Est GFR (Non-Af Amer) 43.4 BUN/Creatinine Ratio 25.8 H Glucose 129 H Calcium 8.7 Magnesium 2.0 Total Bilirubin AST ALT Alkaline Phosphatase Troponin I Total Protein Albumin Globulin Albumin/Globulin Ratio Lipase COVID-19 Eval Order SARS-CoV-2, RNA, NAAT (1) Fall Encounter type: initial encounter Qualified Code(s): W19.XXXA - Unspecified fall, initial encounter (2) Fracture, humerus Encounter type: initial encounter Fracture alignment: displaced Fracture morphology: unspecified fracture morphology Fracture type: closed Humerus Location: surgical neck Laterality: right Qualified Code(s): S42.211A - Unspecified displaced fracture of surgical neck of right humerus, initial encounter for closed fracture (3) Dementia Dementia behavioral disturbance: without behavioral disturbance Dementia type: unspecified type Qualified Code(s): F03.90 - Unspecified dementia without behavioral disturbance
[2020-05-26] MEDS: ACETAMINOPHEN 325 MG TAB PO SCH ×3 (12:16→23:21)
[2020-05-26] MEDS: SIMVASTATIN 20 MG TAB PO SCH (20:32)
[2020-05-27] MEDS: traMADol HCL 50 MG TABLET PO PRN ×2 (02:11→21:54)
[2020-05-27] MEDS: HYDROmorphone INJ 0.5 MG/0.5 ML SYR IV PRN ×3 (03:21→20:02)
[2020-05-27] MEDS: ACETAMINOPHEN 325 MG TAB PO SCH ×4 (06:22→23:57)
[2020-05-27 06:38] LABS: Hematocrit (blood only) 31.5 % (37-47); Hemoglobin 10.4 g/dL (12.0-16.0); Mean Corpuscular Hemoglobin 31.1 pg (25-34); Mean Corpuscular Volume 94.3 fL (80-100); Mean Platelet Volume 10.3 fL (7.4-10.4); Platelet Count 147 K/uL (130-400); RDW Coefficient of Variation 13.7 % (11.5-14.5); RDW Standard Deviation 47.7 fL (36.4-46.3); Red Blood Count 3.34 M/uL (4.2-5.4); White Blood Count 7.73 K/uL (4.8-10.8)
[2020-05-27 06:55] LABS: BUN Creatinine Ratio 26.3 (10-20); Calcium 8.1 mg/dl (8.5-10.1); Creatinine Clr Calc Pharmacy 40.3 ml/min; Est GFR (African American) 61.7; Est GFR (Non-African American) 53.3; INR 1.2 (0.9-1.1); Prothrombin Time 11.7 Seconds (9.0-12.0)
[2020-05-27] MEDS: METOPROLOL SUCC 25MG EXT REL TAB PO SCH (08:35)
[2020-05-27] MEDS: lisinopril 10 MG TAB PO SCH (08:35)
[2020-05-27] MEDS: VERAPAMIL HCL 180 MG TABCR PO SCH (08:35)
[2020-05-27] MEDS: MULTIVITAMIN TAB PO SCH (08:35)
[2020-05-27] MEDS: DOCUSATE SODIUM SYRUP 100 MG/10 ML UDC PO SCH (08:35)
--- NOTE | 2020-05-27 09:46 | Progress Notes ---
DATE: 05/27/2020 SUBJECTIVE: An 84-year-old female admitted with a right displaced proximal humerus fracture. She is doing okay. Still requiring pain medicine regularly. No other complaints. No new pains. OBJECTIVE: VITAL SIGNS: Temperature is 36.9. Vital signs stable. GENERAL: Shows a pleasant, slightly demented, elderly female. She is sitting up on bed, looks reasonably comfortable. EXTREMITIES: Examination of the right arm reveals the sling to be in place. Some moderate swelling. She can flex and extend her fingers and wrist appropriately. She is neurologically intact. LABORATORY DATA: Hemoglobin 10.4. Hematocrit 31.6. INR 1.2. Electrolytes are stable. ASSESSMENT: An 84-year-old white female admitted with a right displaced proximal humerus fracture. Pain seems to be reasonably controlled, but needing medicine. Her INR is fairly well, reversed. PLAN: We are going to take her to the operating room tomorrow and do ORIF of proximal humerus fracture. The risks and benefits were explained to the patient and her daughter and power of litigation attorney associate today. Informed consent was obtained. At this point, we will hold all blood thinners. We will check an INR in the morning. Keep her n.p.o. after midnight. She will likely need an overnight stay in the hospital after surgery and then discharge hopefully the next day.
--- NOTE | 2020-05-27 10:17 | Hospitalist Progress Note ---
Date of Service May 27, 2020 Assessment & Plan (1) Fall: (2) Fracture, humerus: Fall at home with right humeral fracture. Shoulder x-ray showed acute displaced right humeral neck fracture. Continue sling Pain control Got IV vitamin K 5 mg yesterday INR 1.2 this morning Will be kept NPO PMN for OR tomorrow (3) Dementia: Redirect as needed Nursing care (4) Paroxysmal atrial fibrillation: Warfarin on hold for surgery Will resume postop (5) Hypertension: Controlled Continue home lisinopril and verapamil (6) DVT prophylaxis: Warfarin on hold for now for surgery Continue SCD Admission and Anticipated Discharge Date Admission Date: May 25, 2020 Subjective Patient seen and examined. No overnight event per RN. Patient currently has no complaint. However, history/review of system is diff icult to obtain from patient due to hearing deficit and dementia She is currently lying calmly in bed Physical Exam Constitutional: + well hydrated; no acute distress Eyes: PERRL, conjunctivae normal, anicteric sclerae ENMT: external ear and nose normal, oropharynx normal Respiratory: normal respiratory effort, lungs clear to auscultation Cardiovascular: Rate/Rhythm: regular rate and regular rhythm S1-S2 Gastrointestinal (Abdomen): normal bowel sounds, soft, nontender, no hepatosp lenomegaly Musculoskeletal: Right arm in sling Neurologic: Alert, was able to tell me her name. Not oriented to place or time. Follow simple commands occasionally. Significant hearing deficits Dementia Psychiatric: Pleasant elderly woman. +dementia Results & Data Results & Data ([facility]) Vital Signs (Past 12 Hours) Vital Signs Temp Pulse Resp BP Pulse Ox 05/27/20 07:12 36.9 C 69 16 138/64 94 05/26/20 22:47 37.1 C 68 16 137/62 96 Laboratory Results Laboratory Results - last 24 hr 05/27/20 05/27/20 05/27/20 06:14 06:14 06:14 WBC 7.73 RBC 3.34 L Hgb 10.4 L Hct 31.5 L MCV 94.3 MCH 31.1 MCHC 33.0 RDW Std Deviation 47.7 H RDW Coeff of Ranjit 13.7 Plt Count 147 MPV 10.3 PT 11.7 INR 1.2 H Sodium 143 Potassium 4.0 Chloride 112 H Carbon Dioxide 26 Anion Gap 5.0 BUN 25 H Creatinine 0.97 Est Cr Clr Drug Dosing 40.3 Est GFR ( Amer) 61.7 Est GFR (Non-Af Amer) 53.3 BUN/Creatinine Ratio 26.3 H Glucose 107 H Calcium 8.1 L (1) Fall Encounter type: initial encounter Qualified Code(s): W19.XXXA - Unspecified fall, initial encounter (2) Fracture, humerus Encounter type: initial encounter Fracture alignment: displaced Fracture morphology: unspecified fracture morphology Fracture type: closed Humerus Location: surgical neck Laterality: right Qualified Code(s): S42.211A - Unspecified displaced fracture of surgical neck of right humerus, initial encounter for closed fracture (3) Dementia Dementia behavioral disturbance: without behavioral disturbance Dementia type: unspecified type Qualified Code(s): F03.90 - Unspecified dementia without behavioral disturbance
--- NOTE | 2020-05-27 10:31 | Anesthesiology Consultation ---
Date of Service May 27, 2020 Assessment & Plan (1) Encounter for pre-operative examination: Chart Review Chart Review: entry level recruiter initiated History Height/Weight Height: 5 ft 4 in Weight: 68.4 kg Allergies Allergy/AdvReac Type Severity Reaction Status Date / Time Sulfa (Sulfonamide Allergy Intermediate Hives Verified 05/25/20 18:27 Antibiotics) Penicillins Allergy Unknown rash Verified 05/25/20 18:27 Medications Home Medications Medication Instructions Recorded Confirmed Last Taken docusate sodium 50 mg PO DAILY 05/25/20 05/25/20 05/25/20 lisinopril 10 mg PO DAILY 05/25/20 05/25/20 05/25/20 meclizine 25 mg PO TID PRN 05/25/20 05/25/20 Unknown metoprolol succinate 25 mg PO DAILY 05/25/20 05/25/20 05/25/20 multivitamin 1 tab PO DAILY 05/25/20 05/25/20 05/25/20 simvastatin 20 mg PO HS 05/25/20 05/25/20 Unknown verapamil 180 mg PO DAILY 05/25/20 05/25/20 05/25/20 warfarin 2 mg PO 4XWK 05/25/20 05/25/20 Unknown warfarin 3 mg PO 3XWK 05/25/20 05/25/20 Unknown Active Medications Generic Name Dose Route Start Last Admin Trade Name Freq PRN Reason Stop Dose Admin Acetaminophen 650 mg 05/26/20 12:00 05/27/20 06:22 Acetaminophen 325 Mg Tab PO 06/25/20 11:59 650 mg Q6H IVELISSE Administration Docusate Sodium 50 mg 05/26/20 09:00 05/27/20 08:35 Docusate Sodium Syrup 100 Mg/10 Ml Udc PO 06/25/20 08:59 50 mg DAILY IVELISSE Administration Hydromorphone HCl 0.5 mg 05/26/20 11:43 05/27/20 08:39 Hydromorphone Inj 0.5 Mg/0.5 Ml Syr IV 06/08/20 22:57 0.5 mg Q4H PRN Administration Severe Pain Lisinopril 10 mg 05/26/20 09:00 05/27/20 08:35 Lisinopril 10 Mg Tab PO 06/25/20 08:59 10 mg DAILY IVELISSE Administration Metoprolol Succinate 25 mg 05/26/20 09:00 05/27/20 08:35 Metoprolol Succ 25mg Ext Rel Tab PO 06/25/20 08:59 25 mg DAILY IVELISSE Administration Multivitamins 1 tab 05/26/20 09:00 05/27/20 08:35 Multivitamin Tab PO 06/25/20 08:59 1 tab DAILY IVELISSE Administration Simvastatin 20 mg 05/26/20 21:00 05/26/20 20:32 Simvastatin 20 Mg Tab PO 06/25/20 20:59 20 mg HS IVELISSE Administration Tramadol HCl 50 mg 05/26/20 11:42 05/27/20 02:11 Tramadol Hcl 50 Mg Tablet PO 06/25/20 11:41 50 mg Q4H PRN Administration moderate pain Verapamil HCl 180 mg 05/26/20 09:00 05/27/20 08:35 Verapamil Hcl 180 Mg Tabcr PO 06/25/20 08:59 180 mg DAILY IVELISSE Administration Past Medical History Medical History (Updated 05/27/20 @ 10:35 by Errol Weir DO) CKD (chronic kidney disease), stage III Degenerative arthritis of knee, bilateral Dementia Dyslipidemia Hypertension Hypertension Osteoarthritis Paroxysmal atrial fibrillation Past Surgical History Surgical History (Updated 05/27/20 @ 10:31 by Errol Weir DO) H/O colonoscopy "05/29/11- polyp, path shows no evidence of adenomatous tissue" H/O: hysterectomy S/P cataract surgery Social History Smoking Status: Never smoker Hx Alcohol Use: No Hx Substance Use: No Physical Exam Vital Signs Last Vital Signs Temp 98.4 F 05/27/20 07:12 Pulse 69 05/27/20 07:12 Resp 16 05/27/20 07:12 BP 138/64 05/27/20 07:12 Pulse Ox 94 05/27/20 07:12 Testing Laboratory Results 05/27/20 06:14 05/27/20 06:14 PT 11.7 Seconds (9.0-12.0) 05/27/20 06:14 INR 1.2 (0.9-1.1) H 05/27/20 06:14 APTT 28.2 Seconds (21.0-31.0) 05/25/20 18:44 Laboratory Tests 05/25/20 21:46 SARS-CoV-2, RNA, NAAT NEGATIVE Electrocardiogram Date: 05/25/20 Poor data quality, interpretation may be adversely affected Normal sinus rhythm, rate 64 bpm Septal infarct , age undetermined vs lead placement Abnormal ECG No previous ECGs available Confirmed by Christopher Azevedo ([id number]) on 05/26/2020 10:07:37 AM Chest X-Ray Date: 05/25/20 IMPRESSION: 1. No active disease in the chest 2. Acute displaced right humeral neck fracture.
[2020-05-27] MEDS ORDERED: ceFAZolin 2000MG 2,000 MG/15 ML SYR IV SCH (10:45)
[2020-05-27] MEDS: POLYETHYLENE (MIRALAX) 17 GM PACK PO PRN (18:23)
[2020-05-27] MEDS: SIMVASTATIN 20 MG TAB PO SCH (20:07)
[2020-05-28] MEDS: HYDROmorphone INJ 0.5 MG/0.5 ML SYR IV PRN ×4 (01:36→23:52)
[2020-05-28] MEDS ORDERED: ceFAZolin 2000MG 2,000 MG/15 ML SYR IV SCH (06:00)
[2020-05-28] MEDS: ACETAMINOPHEN 325 MG TAB PO SCH ×4 (06:02→20:27)
[2020-05-28 06:17] LABS: Hematocrit (blood only) 31.5 % (37-47); Hemoglobin 10.7 g/dL (12.0-16.0); Mean Corpuscular Hemoglobin 31.7 pg (25-34); Mean Corpuscular Volume 93.2 fL (80-100); Mean Platelet Volume 9.9 fL (7.4-10.4); Platelet Count 149 K/uL (130-400); RDW Coefficient of Variation 13.5 % (11.5-14.5); RDW Standard Deviation 46.6 fL (36.4-46.3); Red Blood Count 3.38 M/uL (4.2-5.4); White Blood Count 6.41 K/uL (4.8-10.8)
[2020-05-28 06:27] LABS: Prothrombin Time 10.6 Seconds (9.0-12.0)
[2020-05-28 06:44] LABS: BUN Creatinine Ratio 26.2 (10-20); Calcium 8.4 mg/dl (8.5-10.1); Creatinine Clr Calc Pharmacy 35.8 ml/min; Est GFR (African American) 53.6; Est GFR (Non-African American) 46.3; Potassium 3.8 mmol/L (3.5-5.1)
--- NOTE | 2020-05-28 07:24 | History & Physical Bridge Note ---
Date of Service May 28, 2020 History & Physical Bridge Note I have examined the patient, reviewed the History & Physical and in the interval since the performance of the History & Physical I have noted the following changes of clinical significance: no changes noted
[2020-05-28] MEDS: METOPROLOL SUCC 25MG EXT REL TAB PO SCH (08:13)
[2020-05-28] MEDS: DOCUSATE SODIUM SYRUP 100 MG/10 ML UDC PO SCH (08:13)
[2020-05-28] MEDS: lisinopril 10 MG TAB PO SCH (08:13)
[2020-05-28] MEDS: MULTIVITAMIN TAB PO SCH (08:13)
[2020-05-28] MEDS: VERAPAMIL HCL 180 MG TABCR PO SCH (08:14)
--- NOTE | 2020-05-28 09:06 | Progress Notes ---
DATE: 05/28/2020 SUBJECTIVE: An 84-year-old white female admitted with a displaced proximal humerus fracture. She is doing pretty well this morning. Pain seems to be a little bit better. Had a pretty good night's rest last night. OBJECTIVE: VITAL SIGNS: Temperature 36.9. Vital signs stable. GENERAL: Shows a pleasant elderly female. She is lying in bed, looks reasonably comfortable this morning. Sling is in place. Some moderate swelling of her shoulder. She can flex and extend her fingers appropriately. She has got brisk refill. LABORATORY DATA: Hemoglobin 10.7. Hematocrit 31.5. INR 1.0. Electrolytes are stable. ASSESSMENT: An 84-year-old white female with a history of atrial fibrillation with a displaced proximal humerus fracture. Her INR is corrected. We are going to proceed with surgery today. PLAN: We are going to take her to the operating room and do ORIF of right proximal humerus fracture. We will start her on Coumadin postop. Continue medical management as per the medicine service.
[2020-05-28] MEDS ORDERED: EPINEPHrine INJ 1 MG/ML AMP ONE (09:57)
[2020-05-28] MEDS ORDERED: BUPIVACAINE 0.25% 30 ML VIAL ONE (09:57)
[2020-05-28] MEDS ORDERED: BUPIVACAINE/EPINEPHRINE 0.5% MPF 1:200,000 30 ML VIAL ONE (11:01)
[2020-05-28] MEDS ORDERED: ONDANSETRON INJ 2 MG/ML 2 ML VIAL IV PRN ×2 (11:09→15:09)
[2020-05-28] MEDS ORDERED: ePHEDrine sulfate 50 MG/ML AMP IV PRN (11:09)
[2020-05-28] MEDS ORDERED: ATROPINE SULFATE 0.1 MG/ML 10ML SYR IV PRN (11:09)
[2020-05-28] MEDS ORDERED: fentaNYL citrate 100 MCG/2 ML VIAL IV PRN (11:09)
[2020-05-28] MEDS ORDERED: fentaNYL citrate 100 MCG/2 ML VIAL ONE (11:19)
[2020-05-28] MEDS ORDERED: PROPOFOL IV EMULSION 10 MG/ML 20 ML VIAL IV ONE (12:13)
[2020-05-28] MEDS ORDERED: ONDANSETRON INJ 2 MG/ML 2 ML VIAL ONE (12:13)
[2020-05-28] MEDS ORDERED: ePHEDrine sulfate 50 MG/ML SYR ONE (12:13)
--- NOTE | 2020-05-28 14:08 | Fluoroscopy Report ---
FL humerus RT 2V HISTORY: 84 years-old Female RT ORIF PROX HUMERUS acute fracture of the right humerus COMPARISON: Right shoulder radiographs 10/25/2020 TECHNIQUE: 4 spot fluoroscopic images of the right humerus were obtained utilizing 55.1 seconds fluor oscopy time FINDINGS: Status post placement of a lateral plate and screw fixation hardware in the proximal right humerus fi xating the acute fracture. There is improved alignment with minimal persistent lateral displacement. A metallic orthopedic tool projects superolateral to the acromium and proximal humerus, likely flatwork finisher al to the patient. There is no dislocation or new acute fracture identified. IMPRESSION: Fluoroscopic assistance as above. ACT 112: Negative or not required by law. The above report was generated using voice recognition software. It may contain grammatical, syntax o r spelling errors. Electronically signed by: Wing Severino M.D. 05/28/2020 2:06 PM
--- NOTE | 2020-05-28 14:21 | Post Operative Brief Note ---
PG Immediate Post Op with CF Date of Surgery May 28, 2020 Pre & Post Diagnosis Operation Date: 05/28/20 10:55 Pre-Op Diagnosis: Right displaced 2 part proximal humerus fracture Post-Op Diagnosis: Right displaced 2 part proximal humerus fracture I identified the patient and participated in the time-out.: Yes Procedure Operation Date: 05/28/20 10:55 Actual Procedures p Right Open Reduction Internal Fixation Proximal Humerus Fracture(Right) - Kwabena Brandon MD Surgeon Kwabena Brandon MD Export Clerk PATTI Shoemaker Estimated Blood Loss 150 Findings Consistent with Post-Op Diagnosis Fluids 600 cc Anesthesia Type General Regional Complications none Disposition Accompanied Patient To Recovery: No Disposition: Recovery Room
--- NOTE | 2020-05-28 14:54 | Anesthesiology Progress Note ---
Date of Service May 28, 2020 Anesthesia Post Procedure Vital Signs Vital Signs: Temp Pulse Pulse Resp BP Pulse Ox 05/28/20 14:40 74 16 175/65 H 100 05/28/20 14:30 70 16 171/77 H 100 05/28/20 14:24 36.4 C L 84 18 140/64 100 05/28/20 11:02 37.5 C 68 18 116/47 L 96 05/28/20 07:25 36.5 C 63 16 124/62 97 05/28/20 00:00 36.9 C 62 18 130/62 94 05/27/20 20:00 36.7 C 68 14 121/62 95 05/27/20 17:05 62 16 100/57 L 93 05/27/20 15:51 36.8 C 69 17 85/42 L 94 Pain Intensity Right Shoulder: Pain Intensity: 4 Transfer of Care Handoff Completed per policy Notes Mental Status: alert / awake / arousable Patient Amnestic to Procedure: Yes Nausea / Vomiting: adequately controlled Pain: adequately controlled Airway Patency, RR, SpO2: stable & adequate BP & HR: stable & adequate Hydration State: stable & adequate Anesthetic Complications: no major complications apparent and Pt Satisfied with anesthetic care Notes: The patient is awake and comfortable. Her SBP is elevated but her other vital signs are stable.
[2020-05-28] MEDS ORDERED: bisacodyL 10 MG SUPP PR PRN (15:09)
[2020-05-28] MEDS ORDERED: METOCLOPRAMIDE HCL INJ 5 MG/ML 2 ML VIAL IV PRN (15:09)
[2020-05-28] MEDS ORDERED: ALUMINUM/MAGNESIUM SUSP 30 ML UDC PO PRN (15:09)
[2020-05-28] MEDS ORDERED: SODIUM CHLORIDE 0.9% 1000ML 1,000 ML IV SCH (15:09)
[2020-05-28] MEDS ORDERED: NALOXONE HCL 0.4 MG/1 ML VIAL/CARP IV PRN (15:09)
--- NOTE | 2020-05-28 15:15 | Hospitalist Progress Note ---
Date of Service May 28, 2020 Assessment & Plan (1) Fall: (2) Fracture, humerus: Fall at home with right humeral fracture. Shoulder x-ray showed acute displaced right humeral neck fracture. Status post right open reduction and internal fixation of proximal humeral fracture this afternoon Pain control We will get PT/OT evaluation tomorrow (3) Dementia: Redirect as needed Nursing care (4) Paroxysmal atrial fibrillation: Resume warfarin (5) Hypertension: Controlled Continue home lisinopril and verapamil (6) DVT prophylaxis: Resume warfarin Admission and Anticipated Discharge Date Admission Date: May 25, 2020 Subjective Patient seen on return from the OR. Has no complaints at this time. Awake, alert, able to tell me her name. Unable to obtain review of systems due to dementia and hearing deficit Physical Exam Constitutional: + well hydrated; no acute distress Eyes: PERRL, conjunctivae normal, anicteric sclerae ENMT: external ear and nose normal, oropharynx normal Respiratory: normal respiratory effort, lungs clear to auscultation Cardiovascular: Rate/Rhythm: regular rate and regular rhythm Gastrointestinal (Abdomen): normal bowel sounds, soft, nontender, no hepatosplenomegaly Musculoskeletal: Clean dressing over right arm in sling Neurologic: Alert, able to say her name. Not oriented to place or time Occasionally follows simple commands. Significant hearing deficit Dementia Psychiatric: Alert, dementia Results & Data Results & Data ([facility]) Vital Signs (Past 12 Hours) Vital Signs Temp Pulse Pulse Resp BP Pulse Ox 05/28/20 15:00 73 16 135/67 100 05/28/20 14:50 36.4 C L 71 16 138/53 L 99 05/28/20 14:40 74 16 175/65 H 100 05/28/20 14:30 70 16 171/77 H 100 05/28/20 14:24 36.4 C L 84 18 140/64 100 05/28/20 11:02 37.5 C 68 18 116/47 L 96 05/28/20 07:25 36.5 C 63 16 124/62 97 Laboratory Results Laboratory Results - last 24 hr 05/27/20 05/28/20 05/28/20 17:59 06:01 06:01 WBC 6.41 RBC 3.38 L Hgb 10.7 L Hct 31.5 L MCV 93.2 MCH 31.7 MCHC 34.0 RDW Std Deviation 46.6 H RDW Coeff of Ranjit 13.5 Plt Count 149 MPV 9.9 PT INR Sodium 141 Potassium 3.8 Chloride 110 H Carbon Dioxide 27 Anion Gap 4.0 BUN 29 H Creatinine 1.09 Est Cr Clr Drug Dosing 35.8 Est GFR ( Amer) 53.6 Est GFR (Non-Af Amer) 46.3 BUN/Creatinine Ratio 26.2 H Glucose 96 Calcium 8.4 L Blood Type A Positive Antibody Screen NEGATIVE 05/28/20 06:01 WBC RBC Hgb Hct MCV MCH MCHC RDW Std Deviation RDW Coeff of Ranjit Plt Count MPV PT 10.6 INR 1.0 Sodium Potassium Chloride Carbon Dioxide Anion Gap BUN Creatinine Est Cr Clr Drug Dosing Est GFR ( Amer) Est GFR (Non-Af Amer) BUN/Creatinine Ratio Glucose Calcium Blood Type Antibody Screen (1) Fall Encounter type: initial encounter Qualified Code(s): W19.XXXA - Unspecified fall, initial encounter (2) Fracture, humerus Encounter type: initial encounter Fracture alignment: displaced Fracture morphology: unspecified fracture morphology Fracture type: closed Humerus Location: surgical neck Laterality: right Qualified Code(s): S42.211A - Unspecified displaced fracture of surgical neck of right humerus, initial encounter for closed fracture (3) Dementia Dementia behavioral disturbance: without behavioral disturbance Dementia type: unspecified type Qualified Code(s): F03.90 - Unspecified dementia without behavioral disturbance
--- NOTE | 2020-05-28 16:47 | Operative Report ---
Post Operative Report Pre & Post Diagnosis Operation Date: 05/28/20 10:55 Pre-Op Diagnosis: Right displaced 2 part proximal humerus fracture Post-Op Diagnosis: Right displaced 2 part proximal humerus fracture I identified the patient and participated in the time-out.: Yes Procedure Operation Date: 05/28/20 10:55 Actual Procedures p Right Open Reduction Internal Fixation Proximal Humerus Fracture(Right) - Kwabena Brandon MD Surgeon Kwabena Brandon MD Webbing Inspector PATTI Shoemaker Estimated Blood Loss 150 Findings Consistent with Post-Op Diagnosis Operative findings revealed displaced proximal humerus fracture. There was some moderate comminution at the fracture site. There was a fairly vertical fracture line going from inferior medial to superior lateral just below the tuberosity insertion. The fracture was completely displaced with the shaft displaced anterior through the clavipectoral fascia with the clavipectoral fascia between the 2 fracture fragments. Fluids 600 cc Specimens None Drains None Anesthesia Type General Regional Complications none Disposition Accompanied Patient To Recovery: No Disposition: Recovery Room Indications Patient is an 84-year-old fairly active female with some moderate underlying dementia who sustained a fall several days ago. She just tripped and fell and injured her right arm. Acute onset of pain. She had severe pain and was difficult managing this she was moved to the hospital, medically optimized, and indicated for surgical treatment. This fracture was completely displaced. Description of Procedure Operative implants consist of: 1. Synthes 3 hole LCP proximal humerus locking plate. 2. Synthes 3.5 fully threaded cortical screws x2. 3. Synthes 3.5 fully threaded cortical locking screws x12. Patient was taken the operating identified and placed on the operating table supine position but all contact areas were properly padded. IV antibiotics 5 by anesthesia team. A interscalene block had been provided in the holding area. A general anesthetic was implemented. The patient was then placed in the beachchair position using the attendant shoulder positioner. The head of the bed was elevated about 30 to 40 degrees. X-ray was brought in to make sure we can get adequate radiographs. Once this was assured I scrubbed the arm with Hibiclens, prepped with ChloraPrep and draped the right upper extremity in the usual sterile fashion. A deltopectoral approach to the right shoulder was then performed through a oblique incision beginning of the coracoid and extending laterally and distally. Sharp dissection was carried out through subcutaneous tissue down to the level of the deltopectoral interval. The deltopectoral interval was identified and developed. The cephalic vein was identified and retracted laterally and protected throughout the case. The fracture was easily visualized as the shaft was displaced significantly anteriorly through the clavipectoral fascia. I entered the fracture as soon as I split the deltopectoral interval. I then opened up the remainder of the clavipectoral fascia and opened the subacromial space with blunt dissection. The CA ligament was released to allow better visualization. I mobilized the deltoid as well as the pack in the subcoracoid space. Great care was taken to protect the is muscular cutaneous and axillary nerves at all times. The fracture site was debrided. I then placed a single #2 Tycron suture through the supraspinatus at its junction to the tuberosity. I then distracted the fracture and was able to a and anatomically reduce it. I tried to get a reduction clamp across the but it was too transverse to distally to allow for adequate dose for stabilization. Therefore I held it reduced and placed 2 K wires 1 from superior anterior to inferior and posterior and do not form anterior inferior to the superior posterior. Some final x-rays were obtained and the fracture was nearly anatomically reduced. A Synthes proximal humeral locking plate was then placed on the lateral aspect of the humerus. Position was verified under fluoroscopy and was temporarily fixed with some K wires. I then placed a single 3.5 cortical screw distally in the oblong hole. I checked the position of the plate and then placed a single 3.5 cortical screw through an oblique hole in the plate in the center of the humeral head. I then filled the remaining holes of the plate proximally with 3.5 locking screws and then placed two 3.5 locking screws distally. The shoulder was taken through range of motion and was extremely stable. From final x-rays were obtained. I irrigated the wound extensively. I injected locally with 30 cc of half percent Marcaine with epinephrine. The deltopectoral interval was closed with 0 Vicryl suture in a [id number] fashion. The subcutaneous tissue then closed with 2 Dexon suture in buried nerve fascia skin was closed skin clif. The arm was then cleaned and dried and sterile dressing composed of Xeroform, 4 x 4's, and a Tegaderm dressing was applied followed by a sling. The patient was then brought out of general incision transferred to the recovery room in stable condition. The patient tolerated the procedure well and there were no complications. Kory Shoemaker, my physician pathologist assistant, was present for the entire procedure. His assistance was required and essential for proper patient positioning, prepping and draping, surgical exposure, retraction, manipulating the fracture, performing the technical details of the operation, placement of the hardware, closure of the wound, placement of sterile bandage and the sling afterwards. I attest to the content of the Intraoperative Record and any orders documented therein. Any exceptions are noted below.
[2020-05-28] MEDS: FERROUS GLUCONATE 324 MG TAB PO SCH (17:29)
[2020-05-28] MEDS: ASCORBIC ACID 500 MG TAB PO SCH (17:29)
[2020-05-28] MEDS: WARFARIN SOD 3 MG TAB PO SCH (17:53)
[2020-05-28] MEDS: DOCUSATE SODIUM 100 MG CAP PO SCH (20:27)
[2020-05-28] MEDS: ceFAZolin 1000MG 1,000 MG/7.5 ML SYR IV SCH (20:27)
[2020-05-28] MEDS: SIMVASTATIN 20 MG TAB PO SCH (20:27)
[2020-05-28] MEDS: SENNA 8.6 MG TAB PO SCH (20:28)
[2020-05-28] MEDS: traMADol HCL 50 MG TABLET PO PRN (22:27)
[2020-05-29] MEDS ORDERED: HYDROmorphone INJ 0.5 MG/0.5 ML SYR IV STA (01:19)
[2020-05-29] MEDS: ceFAZolin 1000MG 1,000 MG/7.5 ML SYR IV SCH (03:54)
[2020-05-29] MEDS: HYDROmorphone INJ 0.5 MG/0.5 ML SYR IV PRN ×2 (03:55→09:00)
[2020-05-29] MEDS: ACETAMINOPHEN 325 MG TAB PO SCH ×3 (03:55→16:53)
[2020-05-29] MEDS ORDERED: SODIUM CHLORIDE 0.9% 500 ML IV SCH (07:15)
[2020-05-29] MEDS: traMADol HCL 50 MG TABLET PO PRN (07:32)
[2020-05-29] MEDS: FERROUS GLUCONATE 324 MG TAB PO SCH ×2 (07:33→16:50)
[2020-05-29] MEDS: ASCORBIC ACID 500 MG TAB PO SCH ×2 (07:33→16:51)
[2020-05-29 08:20] LABS: Hematocrit (blood only) 28.1 % (37-47); Hemoglobin 9.4 g/dL (12.0-16.0); Mean Corpuscular Hemoglobin 31.1 pg (25-34); Mean Corpuscular Hgb Conc 33.5 g/dL (32-36); Mean Platelet Volume 9.9 fL (7.4-10.4); Platelet Count 150 K/uL (130-400); RDW Coefficient of Variation 13.8 % (11.5-14.5); RDW Standard Deviation 47.1 fL (36.4-46.3); Red Blood Count 3.02 M/uL (4.2-5.4); White Blood Count 6.97 K/uL (4.8-10.8)
[2020-05-29 08:45] LABS: INR 1.1 (0.9-1.1); Prothrombin Time 11.3 Seconds (9.0-12.0)
[2020-05-29] MEDS: MAGNESIUM HYDROXIDE SUSP 30 ML UDC PO PRN ×2 (08:51→20:31)
[2020-05-29 08:52] LABS: BUN Creatinine Ratio 22.6 (10-20); Calcium 7.8 mg/dl (8.5-10.1); Creatinine Clr Calc Pharmacy 39.9 ml/min; Est GFR (Non-African American) 52.6; Potassium 4.2 mmol/L (3.5-5.1)
[2020-05-29] MEDS: VERAPAMIL HCL 180 MG TABCR PO SCH (08:52)
[2020-05-29] MEDS: MULTIVITAMIN TAB PO SCH (08:52)
[2020-05-29] MEDS: METOPROLOL SUCC 25MG EXT REL TAB PO SCH (08:53)
[2020-05-29] MEDS: lisinopril 10 MG TAB PO SCH (08:53)
[2020-05-29] MEDS: DOCUSATE SODIUM 100 MG CAP PO SCH ×2 (08:53→20:26)
[2020-05-29] MEDS ORDERED: MULTIVITAMIN TAB PO SCH (09:00)
[2020-05-29] MEDS: DOCUSATE SODIUM SYRUP 100 MG/10 ML UDC PO SCH (09:02)
--- NOTE | 2020-05-29 12:57 | Hospitalist Progress Note ---
Date of Service May 29, 2020 Assessment & Plan (1) Fall: (2) Fracture, humerus: Fall at home with right humeral fracture. Shoulder x-ray showed acute displaced right humeral neck fracture. Status post right open reduction and internal fixation of proximal humeral fracture POD 1 Pain control Dilaudid discontinued for now Tylenol abdirahman and tramadol prn PT/OT evaluation Hypotensive episode may be related to dehydration +/- vasovagal Was brief and resolved Got NSS bolus Monitor for now (3) Dementia: Redirect as needed Nursing care (4) Paroxysmal atrial fibrillation: Takes warfarin at home Got vit K for INR reversal on admission so that surgery can be done Warfarin resumed Monitor INR (5) Hypertension: Controlled Continue home lisinopril and verapamil If another episode of hypotension, will consider holding lisinoporil (6) DVT prophylaxis: Warfarin Admission and Anticipated Discharge Date Admission Date: May 25, 2020 Subjective Patient seen and examined. Had an episode of hypotension this morning while on the commode Daughter was at bedside this morning. No other concerns noted. Patient had no complaints. Per daughter, yet to move her bowels since Thursday Review of Systems Review of Systems: Unobtainable due to cognitive status (Dementia and hearing deficit) Physical Exam Constitutional: + well hydrated; no acute distress Elderly woman Eyes: PERRL, conjunctivae normal, anicteric sclerae ENMT: external ear and nose normal, oropharynx normal Respiratory: normal respiratory effort, lungs clear to auscultation Cardiovascular: Rate/Rhythm: regular rate and regular rhythm S1 S2 Gastrointestinal (Abdomen): normal bowel sounds, soft, nontender, no hepatosplenomegaly Musculoskeletal: Mild swelling of right arm, clean dressing over right arm in sling Neurologic: + Hearing deficit Alert and oriented to person only Follows simple commands Psychiatric: Orientation: alert and oriented to person +dementia Results & Data Results & Data ([facility]) Vital Signs (Past 12 Hours) Vital Signs Temp Pulse Pulse Resp BP Pulse Ox 05/29/20 10:26 137/63 05/29/20 07:49 37 C 74 16 122/63 93 05/29/20 06:54 71 118/67 05/29/20 06:53 81 22 60/36 L 94 Laboratory Results Laboratory Results - last 24 hr 05/29/20 05/29/20 05/29/20 08:09 08:09 08:09 WBC 6.97 RBC 3.02 L Hgb 9.4 L Hct 28.1 L MCV 93.0 MCH 31.1 MCHC 33.5 RDW Std Deviation 47.1 H RDW Coeff of Ranjit 13.8 Plt Count 150 MPV 9.9 PT 11.3 INR 1.1 Sodium 139 Potassium 4.2 Chloride 109 H Carbon Dioxide 26 Anion Gap 4.0 BUN 22 H Creatinine 0.98 Est Cr Clr Drug Dosing 39.9 Est GFR ( Amer) 61.0 Est GFR (Non-Af Amer) 52.6 BUN/Creatinine Ratio 22.6 H Glucose 109 H Calcium 7.8 L (1) Fall Encounter type: initial encounter Qualified Code(s): W19.XXXA - Unspecified fall, initial encounter (2) Fracture, humerus Encounter type: initial encounter Fracture alignment: displaced Fracture morphology: unspecified fracture morphology Fracture type: closed Humerus Location: surgical neck Laterality: right Qualified Code(s): S42.211A - Unspecified displaced fracture of surgical neck of right humerus, initial encounter for closed fracture (3) Dementia Dementia behavioral disturbance: without behavioral disturbance Dementia type: unspecified type Qualified Code(s): F03.90 - Unspecified dementia without behavioral disturbance
--- NOTE | 2020-05-29 13:43 | Progress Notes ---
DATE: 05/29/2020 SUBJECTIVE: An 84-year-old white female postoperative day 1 from ORIF of a displaced proximal humerus fracture. She is doing pretty well, requiring some pain medicine. Denies any other complaints. OBJECTIVE: VITAL SIGNS: Temperature is 37.0. Vital signs are stable. EXTREMITIES: Physical examination of the right shoulder reveals the dressing to be clean, dry and intact. Some moderate bruising. No drainage. Arm is well aligned. She can flex and extend her wrist and fingers appropriately. She is neurologically intact. LABORATORY DATA: Hemoglobin 9.4. Hematocrit 28.1. Electrolytes are stable. ASSESSMENT: An 84-year-old white female with some underlying dementia, postoperative day 1 from open reduction internal fixation of a displaced proximal humerus fracture. Orthopedically, she is doing pretty well. The pain seems to be controlled with p.o. pain medications. PLAN: 1. DVT prophylaxis including thigh-high TEDs, SCDs, and she is back on her Coumadin. She can back on her regular dose. 2. PT/OT. Really does not need much therapy for this. We do not want to use this arm too much and I would not write for therapy, just leave her in the sling for the next 2 weeks. 3. Pain control, seems to be doing okay with current pain regimen. 4. Medical management as per the medicine service. 5. Disposition: She is orthopedically okay for discharge any time. We are going to leave this bandage on and I will see her back in clinic somewhere between 2 and 3 weeks. Any orthopedic questions can be directed to me at [phone]. She will stay in the sling. Does not need therapy for her arm. Sling at all times. Dressing can stay on as long as it does not get wet.
[2020-05-29] MEDS: POLYETHYLENE (MIRALAX) 17 GM PACK PO PRN (13:48)
[2020-05-29] MEDS ORDERED: WARFARIN SOD 2 MG TAB PO SCH (16:00)
[2020-05-29] MEDS: SIMVASTATIN 20 MG TAB PO SCH (20:25)
[2020-05-29] MEDS: SENNA 8.6 MG TAB PO SCH (20:25)
[2020-05-30] MEDS: ACETAMINOPHEN 325 MG TAB PO SCH ×5 (00:09→23:13)
[2020-05-30] MEDS: traMADol HCL 50 MG TABLET PO PRN (02:34)
[2020-05-30 07:24] LABS: Hematocrit (blood only) 27.3 % (37-47); Hemoglobin 9.3 g/dL (12.0-16.0); Mean Corpuscular Hemoglobin 31.5 pg (25-34); Mean Corpuscular Hgb Conc 34.1 g/dL (32-36); Mean Corpuscular Volume 92.5 fL (80-100); Mean Platelet Volume 10.2 fL (7.4-10.4); Platelet Count 172 K/uL (130-400); RDW Coefficient of Variation 13.7 % (11.5-14.5); RDW Standard Deviation 46.6 fL (36.4-46.3); Red Blood Count 2.95 M/uL (4.2-5.4); White Blood Count 6.21 K/uL (4.8-10.8)
[2020-05-30 07:40] LABS: INR 1.5 (0.9-1.1); Prothrombin Time 14.6 Seconds (9.0-12.0)
[2020-05-30 07:50] LABS: BUN Creatinine Ratio 22.7 (10-20); Calcium 8.4 mg/dl (8.5-10.1); Creatinine Clr Calc Pharmacy 37.6 ml/min; Est GFR (African American) 56.7; Magnesium 2.5 mg/dl (1.8-2.4); Potassium 4.2 mmol/L (3.5-5.1)
--- NOTE | 2020-05-30 08:58 | Progress Notes ---
DATE: 05/30/2020 SUBJECTIVE: An 84-year-old white female postop day 2 from ORIF of a right proximal humerus fracture. She seems to be doing better. Pain seems to be improved. No new complaints. Daughter is concerned that she has not had a bowel movement yet. OBJECTIVE: VITAL SIGNS: Temperature 36.9. Vital signs stable. GENERAL: Physical examination shows a pleasant, elderly female. She is sitting up in bed and looks quite comfortable. Does not look in any distress or pain. EXTREMITIES: Examination of the right arm reveals sling to be in place. Dressing is clean, dry and intact. No drainage. She is neurologically intact. ASSESSMENT: An 84-year-old white female with some underlying dementia, postoperative day 2 from open reduction internal fixation of a proximal humerus fracture. Orthopedically, she seemed stable. PLAN: At this point, she is orthopedically okay for discharge at any time. We can leave this dressing in place until I see her back in 2 weeks. I talked to her daughter about this. Sling at all times. Does not need any therapy for her arm at this point. She is certainly ready for discharge from our standpoint. Any orthopedic questions can be directed to me at [phone].
[2020-05-30] MEDS: ASCORBIC ACID 500 MG TAB PO SCH ×2 (09:06→18:22)
[2020-05-30] MEDS: MULTIVITAMIN TAB PO SCH (09:06)
[2020-05-30] MEDS: VERAPAMIL HCL 180 MG TABCR PO SCH (09:06)
[2020-05-30] MEDS: FERROUS GLUCONATE 324 MG TAB PO SCH ×2 (09:06→18:22)
[2020-05-30] MEDS: lisinopril 10 MG TAB PO SCH (09:06)
[2020-05-30] MEDS: DOCUSATE SODIUM SYRUP 100 MG/10 ML UDC PO SCH (09:07)
[2020-05-30] MEDS: METOPROLOL SUCC 25MG EXT REL TAB PO SCH (09:07)
[2020-05-30] MEDS: DOCUSATE SODIUM 100 MG CAP PO SCH ×2 (09:07→21:11)
[2020-05-30] MEDS ORDERED: DOCUSATE SODIUM 100 MG CAP PO ONE (11:29)
[2020-05-30] MEDS ORDERED: POLYETHYLENE (MIRALAX) 17 GM PACK PO ONE (11:29)
[2020-05-30] MEDS: SENNA 8.6 MG TAB PO SCH ×2 (13:02→21:11)
--- NOTE | 2020-05-30 17:38 | Discharge Summary ---
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 She lives with her . She walks without any support as per the daughter. She was hanging up her coat and fell. They found her on the floor and there was TV on top of her. Her only complaint was shoulder pain. No loss of consciousness. In the imaging studies in the ER, CT of the head, facial CT, cervical spine CT, chest x-ray and shoulder x-ray was done showing acute displaced right humeral neck fracture. Rest of the imaging studies were okay. She is on Coumadin and INR is 2.1. ER talked to orthopedics and they want to hold Coumadin and will be evaluated in the a.m. The patient's only complaint is pain in the right shoulder and arm region. She was also placed on morphine and she was hard of hearing and also has dementia. All questions were answered by the daughter. As per daughter she has dementia, but she can walk for about 1-2 blocks and also can climb steps okay. No recent fever, chills. No cough, no nausea, no abdominal pain, no complaint of chest pain or abdominal pain, no shortness of breath, no diarrhea. Otherwise, appetite is good. She is sleeping okay. Admission Exam Per Admitting Provider VITAL SIGNS: Temperature 36.6, pulse 69, respirations 17, blood pressure 154/67, oxygen 97% on room air. HEENT: Slight bruise on the right brow region. Pupils equal, round, and reactive to light. Oral mucosa dry. NECK: No JVD or neck masses. CARDIOVASCULAR: S1, S2 heard. Ejection murmur, systolic murmur in the aortic area. No gallop. RESPIRATORY SYSTEM: Normal AP diameter. No accessory muscle use. No wheezing, no crackles. ABDOMEN: Soft, bowel sounds present, nontender. No distention. CENTRAL NERVOUS SYSTEM: Alert and awake. Obeys simple commands. No facial droop. Speech is clear. EXTREMITIES: No edema, no erythema in lower extremities seen, right upper extremity is flexed. Principal Diagnosis Mechanical fall, right humerus, acute displaced right humeral neck fracture. Discharge Exam General: awake and alert HENT: NCAT, MMM, EOMI Eyes: PERRLA Neck: Supple, normal range of motion CVS: normal rate and rhythm Resp: b/l good breath sounds Abdomen: Soft, ND/NT Extremities: RUE sling in place Neuro: face symmetric, strength grossly equal, no focal deficit Skin: warm and dry, no rashes/lesions/errythema MSK: normal ROM, no joint swelling/erythema Discharge Data Allergies Allergy/AdvReac Type Severity Reaction Status Date / Time Sulfa (Sulfonamide Allergy Intermediate Hives Verified 05/28/20 10:56 Antibiotics) Penicillins Allergy Unknown rash Verified 05/28/20 10:56 Consultations 05/25/20 20:07 ED Decision to Admit Stat 05/26/20 08:00 Consult Orthopedic Surgery Routine Procedures Performed Operation Date: 05/28/20 10:55 Actual Procedures p Right Open Reduction Internal Fixation Proximal Humerus Fracture(Right) - Kwabena Brandon MD Ordered Studies 05/25/20 18:09 CT cervical spine wo con Stat CT facial bones wo con Stat CT head/brain wo con Stat 05/28/20 11:09 US - OR guided needle placemen Routine 05/28/20 12:00 FL fluoroscopy <1hr Routine FL humerus RT 2V Routine Hospital Course (1) Fall: (2) Fracture, humerus: Fall at home with right humeral fracture. Shoulder x-ray showed acute displaced right humeral neck fracture. Status post right open reduction and internal fixation of proximal humeral fracture On the day of discharge patient was doing okay. Her pain was well controlled. She did have bowel movement prior to discharge. Continue tramadol as needed for pain control as an outpatient. (3) Dementia: Redirect as needed. (4) Paroxysmal atrial fibrillation: Continue with Coumadin. (5) Hypertension: Patient did have episodes of hypotension during his hospitalization. It resolved prior to discharege. Total Time Total Time Spent Total Time Spent (In Minutes): 35 Discharge Plan Discharge Items Patient Disposition: Home - Home Health Services Reason For Visit: shoulder pain Discharge Diagnosis: Right Proximal Humerus Fracture Activity: Per Instructions section Activity Comment: Sling at all times. Limited use of right arm Non-emergency contact: Primary Care Provider Call non-emergency contact if: your symptoms worsen Follow-up/Referrals: Kwabena Brandon MD [Physician] - (Orthopedic follow-up 2-3 weeks from surgery date.) Asmita Wasserman DO [Primary Care Provider] - (Date & Time 06/06/2020 11:10 AM Provider Asmita Wasserman DO Department Internal Medicine [facility] ) Diet: Heart Healthy Addtl Attending Provider Instructions: Sling at all times. Limited use of right arm. Take tramadol as needed for pain control. Pending Studies at Discharge: No Stand-Alone Forms: My [facility] [employer], Smoking Cessation Medications and DC Order Prescriptions: New tramadol 50 mg Tablet 50 - 100 mg PO Q6H PRN (Reason: pain) Qty: 30 RF: 0 Continued multivitamin Tablet 1 tab PO DAILY RF: 0 verapamil 180 mg tablet extended release 180 mg PO DAILY RF: 0 docusate sodium 50 mg Capsule 50 mg PO DAILY RF: 0 meclizine 25 mg Tablet 25 mg PO TID PRN (Reason: Dizziness) RF: 0 simvastatin 20 mg tablet 20 mg PO HS RF: 0 lisinopril 10 mg tablet 10 mg PO DAILY RF: 0 warfarin 2 mg tablet 2 mg PO 4XWK RF: 0 warfarin 2 mg tablet 3 mg PO 3XWK RF: 0 metoprolol succinate 25 mg tablet extended release 24 hr 25 mg PO DAILY RF: 0 Discharge Orders: Discharge Order (Routine); Ordered 05/31/20 Ordered By: Rafaela Ricci Admission Data Admit Date/Time: 05/25/20 21:24 Attending Provider: Rafaela Ricci Admit Provider: [facility] Primary Care Provider: Asmita Wasserman Other Providers: [facility],Home Healthcare ; [facility] ; Kwabena Brandon
[2020-05-30] MEDS ORDERED: SOD PHOSPHATE/SOD BIPHOSPHATE ENEMA 132 ML BTL PR STA (17:39)
[2020-05-30] MEDS ORDERED: SOD PHOSPHATE/SOD BIPHOSPHATE ENEMA 132 ML BTL PR ONE (17:42)
[2020-05-30] MEDS: WARFARIN SOD 3 MG TAB PO SCH (18:21)
[2020-05-30] MEDS ORDERED: SOD PHOSPHATE/SOD BIPHOSPHATE ENEMA 132 ML BTL PR PRN (18:45)
--- NOTE | 2020-05-30 18:57 | Hospitalist Progress Note ---
Date of Service May 30, 2020 Assessment & Plan (1) Fall: (2) Fracture, humerus: Fall at home with right humeral fracture. Shoulder x-ray showed acute displaced right humeral neck fracture. Status post right open reduction and internal fixation of proximal humeral fracture Patient was doing okay. Her pain was well controlled. Continue tramadol as needed for pain control plan was to discharge home today. However, patient did not have a successful bowel movement. Currently on senna/Colace and MiraLAX. Ordered suppository and enema. Plan for discharge tomorrow. (3) Dementia: Redirect as needed. (4) Paroxysmal atrial fibrillation: Continue with Coumadin. (5) Hypertension: Patient did have episodes of hypotension during his hospitalization. Lisinopril was held at discharge. Please resume as blood pressure permits. Admission and Anticipated Discharge Date Admission Date: May 25, 2020 Subjective Patient was awake and alert. Working with occupational therapy. Daughter was at bedside. Patient did not appear to be in any discomfort. Could not obtain full review of system given her baseline mental status. Review of Systems Review of Systems: All systems reviewed & are unremarkable except as noted in HPI & below Physical Exam Physical Exam: Genera awake and alert, does not appear to be in any distress HENT: NCAT, MMM, EOMI Eyes: PERRLA Neck: Supple, normal range of motion CVS: normal rate and rhythm Resp: b/l breath sound Abdomen: Soft, ND/NT, +BS Extremities: Right upper extremity sling in place Neuro: face symmetric, strength grossly equal, no focal deficit Skin: warm and dry, no rashes/lesions/errythema MSK: normal ROM, no joint swelling/erythema Results & Data Results & Data ([facility]) Vital Signs (Past 12 Hours) Vital Signs Temp Pulse Resp BP Pulse Ox 05/30/20 16:00 36.9 C 101 H 18 111/66 97 05/30/20 07:30 36.7 C 67 18 121/67 97 (1) Fall Encounter type: initial encounter Qualified Code(s): W19.XXXA - Unspecified fall, initial encounter (2) Fracture, humerus Encounter type: initial encounter Fracture alignment: displaced Fracture morphology: unspecified fracture morphology Fracture type: closed Humerus Location: surgical neck Laterality: right Qualified Code(s): S42.211A - Unspecified displaced fracture of surgical neck of right humerus, initial encounter for closed fracture (3) Dementia Dementia behavioral disturbance: without behavioral disturbance Dementia type: unspecified type Qualified Code(s): F03.90 - Unspecified dementia without behavioral disturbance
[2020-05-30] MEDS: SIMVASTATIN 20 MG TAB PO SCH (21:13)
[2020-05-31] MEDS: ACETAMINOPHEN 325 MG TAB PO SCH (06:11)
[2020-05-31] MEDS: VERAPAMIL HCL 180 MG TABCR PO SCH (08:30)
[2020-05-31] MEDS: MULTIVITAMIN TAB PO SCH (08:31)
[2020-05-31] MEDS: DOCUSATE SODIUM 100 MG CAP PO SCH (08:32)
[2020-05-31] MEDS: METOPROLOL SUCC 25MG EXT REL TAB PO SCH (08:32)
[2020-05-31] MEDS: FERROUS GLUCONATE 324 MG TAB PO SCH (08:32)
[2020-05-31] MEDS: ASCORBIC ACID 500 MG TAB PO SCH (08:33)
[2020-05-31] MEDS: DOCUSATE SODIUM SYRUP 100 MG/10 ML UDC PO SCH (08:34)
[2020-05-31] MEDS: SENNA 8.6 MG TAB PO SCH (08:35)
== END 2020-05-31 12:24 | disposition home health service (06) | DRG 493 ==
LOC: ED 17:27 → SUATTDRO 21:24 → 3W 21:24

== ENCOUNTER 2022-07-05 21:37 | Observation (INO) ==
--- NOTE | 2022-07-05 21:59 | Emergency Department Note ---
Impression & Plan Multiple rib fractures ADMIT ED Provider Note HPI: The patient is an 87-year-old female with history of dementia, atrial fibrillation, on Coumadin, presents the emergency department with her over concern for a fall. Patient's states that shortly prior to arrival to the ED the patient had a fall in the kitchen when she slipped on the floor. He believes this is because she was wearing socks on the floor at times can be slippery. He states that she fell on her right side, he does not believe that she hit her head. Patient has been complaining some pain in the area of the right lateral ribs since her fall. On arrival here to the ED the patient is alert, she is hemodynamically stable, she is saturating well on room air. Does have some palpable tenderness in the area of the right lateral ribs. She is saturating well on room air on arrival. ROS: - Per HPI *Outpatient medications and allergy history reviewed. *Pertinent external medical records reviewed. PE: General: Alert, frail-appearing, no acute distress HEENT: Normocephalic, trachea midline Eyes: Extraocular eye movement is intact, no scleral erythema Pulmonary: Clear to auscultation bilaterally, no wheezing Cardio: Regular rate and rhythm GI: Abdomen is soft to palpation : No suprapubic tenderness MSK: No evidence of trauma or malformation of the extremities, no edema Skin: No evidence of rash Neuro: Alert, no focal deficits Psychiatric: Cooperative playground monitor: (As interpreted by myself): - An order was placed for continuous cardiac monitoring - Patient was noted to be in sinus rhythm with a rate of 65 EKG: (As interpreted by myself): Rate: 67 Rhythm: Sinus rhythm Intervals: FL interval 212 ms, otherwise within normal limits ST changes: No ST elevation Time: 2201 Interventions provided in ED: -Tylenol Differential Diagnosis: Traumatic pathology to include skull fracture, intracranial bleeding, subdural hematoma/epidural hematoma, acute rib fractures, pneumothorax, hemothorax, amongst other potential pathologies. Medical Decision Making: The patient is a frail-appearing 87-year-old female with history of dementia, atrial fibrillation, currently anticoagulated on Coumadin, presents emergency department with her and RN geophysical observer at the bedside over concern for mechanical fall this evening. Patient slipped and fell on the kitchen floor and fell on her right side. She is guarding in the area of her right lateral ribs on arrival. She is otherwise hemodynamically stable and saturating well on room air. IV was established and lab work obtained, lab work shows stable hemoglobin at 12.2, no leukocytosis, platelet count is within normal limits, CMP does not show any critical findings, CT imaging of the head shows no evidence of intracranial bleeding, CT imaging of the chest was performed without contrast over concern for borderline renal function, this does show evidence of multiple right-sided rib fractures in ribs 5 through 7, there is displacement of the sixth and seventh rib fractures. Mild hemothorax noted. No pneumothorax. INR was attempted to be drawn several times however complicated by hemolysis, therefore [id number] INR was obtained and returned at 3.0. Patient remained hemodynamically stable while she was here in the ED and she is alert on my reassessment. Hemoglobin is stable, I do not feel that emergent reversal of Coumadin is indicated at this time. I discussed all the above findings with the geophysical observer who is an RN at the bedside and also with the patient's . is initially interested in taking her home however I did advise against this given her elevated INR with multiple rib fractures, I do feel she would benefit from overnight observation for pain control and possibly repeat chest x-ray in the morning. Patient's did express an agreement and understanding. He states he does not want her transferred to any other hospitals for formal trauma evaluation, but if it is possible to admit her here at [facility] he is in agreement for admission which I think is reasonable. He does note that the patient is DNR/DNI CODE STATUS and would not be a candidate for any aggressive surgical interventions. Case was therefore discussed with the on-call hospitalist for [facility], Dr. Cordoba. Consultants: On-call hospitalistDr. Cordoba Disposition held with: Patient's and RN geophysical observer at the bedside Diagnosis: 1. Rib fractures, acute, closed, right-sided, 5 through 7 2. On Coumadin with INR of 3.0 3. Mechanical fall Disposition: Admission Darinel Cunningham DO Emergency Medicine Past Med/Surg History Medical History CKD (chronic kidney disease), stage III Degenerative arthritis of knee, bilateral Dementia Dyslipidemia Encounter for pre-operative examination Hypertension Hypertension Osteoarthritis Paroxysmal atrial fibrillation Proximal humerus fracture Surgical History H/O colonoscopy H/O: hysterectomy S/P cataract surgery Social History Smoking Status: Never smoker Tobacco Type: Cigarettes Hx Alcohol Use: No Hx Substance Use: No Preferred Language: [place] Communication Ability: Effective Faculty Head Required: No Beliefs That Will Affect Care: None Current Living Situation: Spouse Feels Safe at Home: Yes Assistive Devices: None Allergies Allergies Allergy/AdvReac Type Severity Reaction Status Date / Time Sulfa (Sulfonamide Allergy Intermediate Hives Verified 07/05/22 23:20 Antibiotics) Penicillins Allergy Unknown rash Verified 07/05/22 23:20 atorvastatin Allergy Unknown Verified 07/05/22 23:22 Home Meds Home Medications Medication Instructions Recorded Confirmed multivitamin 1 tab PO DAILY 05/25/20 07/05/22 simvastatin 20 mg tablet 20 mg PO HS 05/25/20 07/05/22 warfarin 2 mg tablet 2 mg PO 4XWK 05/25/20 07/05/22 warfarin 2 mg tablet 3 mg PO 3XWK 05/25/20 07/05/22 acetaminophen 650 mg 650 mg PO Q12H 07/05/22 07/05/22 tablet,extended release calcium carbonate 500 mg calcium 500 mg PO BID 07/05/22 07/05/22 (1,250 mg) tablet cholecalciferol (vitamin D3) 25 25 mcg PO DAILY 07/05/22 07/05/22 mcg (1,000 unit) tablet docusate sodium 50 mg capsule 50 mg PO DAILY 07/05/22 07/05/22 fluticasone propionate 50 2 spray intranasal DAILY 07/05/22 07/05/22 mcg/actuation nasal spray,suspension meclizine 25 mg tablet 25 mg PO TID PRN Dizziness 07/05/22 07/05/22 metoprolol succinate 25 mg 25 mg PO QAM 07/05/22 07/05/22 tablet,extended release 24 hr polyethylene glycol 3350 17 gram 119 g PO DAILY 07/05/22 07/05/22 oral powder packet risperidone 0.25 mg tablet 0.25 mg PO HS 07/05/22 07/05/22 Results & Data (ED) Vital Signs Vital Signs - 24 hr 07/05/22 21:43 Temperature 36.3 C L Temperature Source Temporal Artery Scan Pulse Rate 68 Respiratory Rate 18 Respiratory Effort / Characteristics Non-Labored Spontaneous Respiratory Depth Normal Blood Pressure 143/82 H Blood Pressure Mean 102 Blood Pressure Position Sitting Pulse Oximetry 99 Oxygen Delivery Method Room Air Sepsis Recent Fever Within 48 Hours No Sepsis New/Unexplained Change in Mental Status N/A Sepsis Action Taken by Nursing No Action Required Laboratory Data 07/05/22 22:13 07/05/22 22:13 Lab Results 07/05/22 07/05/22 07/05/22 Range/Units 00:01 22:13 22:13 WBC 8.07 (4.8-10.8) K/ul RBC 3.92 L (4.20-5.40) M/uL Hgb 12.2 (12.0-16.0) g/dl Hct 36.7 L (37.0-47.0) % MCV 93.6 (80.0-100.0) fL MCH 31.1 (25.0-34.0) pg MCHC 33.2 (32.0-36.0) g/dL RDW Std Deviation 45.6 (36.4-46.3) fL RDW Coeff of Ranjit 13.3 (11.5-14.5) % Plt Count 165 (130-400) K/uL MPV 10.2 (9.4-12.4) fL Immature Gran % (Auto) 1.0 % Neut % (Auto) 79.5 % Lymph % (Auto) 11.9 % Kenton % (Auto) 6.8 % Eos % (Auto) 0.6 % Baso % (Auto) 0.2 % Neut # (Auto) 6.41 (1.40-6.50) K/uL Lymph # (Auto) 0.96 L (1.2-3.4) K/uL Kenton # (Auto) 0.55 (0.11-0.59) K/uL Eos # (Auto) 0.05 (0-0.50) K/uL Baso # (Auto) 0.02 (0-0.2) K/uL Immature Gran # (Auto) 0.08 (0.01-0.20) K/uL PT Cancelled POC INR (0.9-1.1) INR Cancelled Sodium 142 (136-145) mmol/L Potassium 4.3 (3.5-5.1) mmol/L Chloride 107 (98-107) mmol/L Carbon Dioxide 27 (21-32) mmol/L Anion Gap 8 (3-11) BUN 32 H (6-23) mg/dl Creatinine 1.25 H (0.6-1.2) mg/dl Est Cr Clr Drug Dosing Not Reportable Est GFR ( Amer) 44.5 ml/min Est GFR (Non-Af Amer) 38.4 ml/min BUN/Creatinine Ratio 25.6 H (10-20) Glucose 118 H (70-99(Fasting)) mg/dl Calcium 8.9 (8.6-10.3) mg/dl Total Bilirubin 0.3 (0.2-1.0) mg/dl AST 18 (13-39) U/L ALT 12 (7-52) U/L Alkaline Phosphatase 52 (34-104) U/L Total Protein 6.5 (6.0-8.3) gm/dl Albumin 3.7 (3.4-5.0) gm/dl Globulin 2.8 (2.5-4.0) gm/dl Albumin/Globulin Ratio 1.3 (0.9-2) 07/05/22 07/06/22 Range/Units 22:13 01:22 WBC (4.8-10.8) K/ul RBC (4.20-5.40) M/uL Hgb (12.0-16.0) g/dl Hct (37.0-47.0) % MCV (80.0-100.0) fL MCH (25.0-34.0) pg MCHC (32.0-36.0) g/dL RDW Std Deviation (36.4-46.3) fL RDW Coeff of Ranjit (11.5-14.5) % Plt Count (130-400) K/uL MPV (9.4-12.4) fL Immature Gran % (Auto) % Neut % (Auto) % Lymph % (Auto) % Kenton % (Auto) % Eos % (Auto) % Baso % (Auto) % Neut # (Auto) (1.40-6.50) K/uL Lymph # (Auto) (1.2-3.4) K/uL Kenton # (Auto) (0.11-0.59) K/uL Eos # (Auto) (0-0.50) K/uL Baso # (Auto) (0-0.2) K/uL Immature Gran # (Auto) (0.01-0.20) K/uL PT Cancelled POC INR 3.0 H (0.9-1.1) INR Cancelled Sodium (136-145) mmol/L Potassium (3.5-5.1) mmol/L Chloride (98-107) mmol/L Carbon Dioxide (21-32) mmol/L Anion Gap (3-11) BUN (6-23) mg/dl Creatinine (0.6-1.2) mg/dl Est Cr Clr Drug Dosing Est GFR ( Amer) ml/min Est GFR (Non-Af Amer) ml/min BUN/Creatinine Ratio (10-20) Glucose (70-99(Fasting)) mg/dl Calcium (8.6-10.3) mg/dl Total Bilirubin (0.2-1.0) mg/dl AST (13-39) U/L ALT (7-52) U/L Alkaline Phosphatase (34-104) U/L Total Protein (6.0-8.3) gm/dl Albumin (3.4-5.0) gm/dl Globulin (2.5-4.0) gm/dl Albumin/Globulin Ratio (0.9-2) Administered Medications Discontinued Medications Acetaminophen (Acetaminophen 325 Mg Tab) 650 mg PO NOW STA Stop: 07/06/22 00:40 Last Admin: 07/06/22 00:45 Dose: 650 mg Documented By: ALEIDA Sodium Chloride (Nss) 500 mls @ 999 mls/hr IV .Q31M IVELISSE Stop: 07/05/22 22:30 Last Infusion: 07/05/22 22:49 Dose: 0 mls/hr Documented By: Admin: 07/05/22 22:15 Dose: 999 mls/hr Documented By: ALEIDA Imaging Data Radiologist's Impression: Head CT 07/05/22 21:57 Exam(s): CT HEAD Without Contrast EXAM: CT Head Without Intravenous Contrast CLINICAL HISTORY: Reason for exam: Trauma, fall on coumadin. TECHNIQUE: Axial computed tomography images of the head/brain without intravenous contrast. Automated exposure control was utilized for the study. A dose lowering technique was utilized adhering to the principles of ALARA. COMPARISON: 10/25/2020. FINDINGS: Brain: Moderate generalized brain atrophy. Decreased attenuation within the deep white matter compatible with microangiopathic white matter disease. No hemorrhage. Ventricles: Unremarkable. No ventriculomegaly. Bones/joints: Unremarkable. No acute fracture. Soft tissues: Unremarkable. Sinuses: Mucosal thickening within the right maxillary sinus most compatible with chronic sinus disease. Remainder of the paranasal sinuses are clear. Mastoid air cells: Unremarkable as visualized. No mastoid effusion. IMPRESSION: 1. Chronic changes as described. No acute intracranial hemorrhage or space-occupying lesion. 2. Right-sided maxillary sinus disease as described. 3. No skull fracture. Electronically signed by: Fanny Beyer MD 07/06/22 00:[address] 07/05/22 23:16 Exam(s): CT CHEST Without Contrast EXAM: CT Chest Without Intravenous Contrast CLINICAL HISTORY: Reason for exam: R sided rib pain s/p fall. TECHNIQUE: Axial computed tomography images of the chest without intravenous contrast. Automated exposure control was utilized for the study. A dose lowering technique was utilized adhering to the principles of ALARA. COMPARISON: None. FINDINGS: Lungs: Mild right lower lobe atelectasis. Pleural space: Mild right-sided pleural effusion. Heart: Mild cardiomegaly with coronary artery calcifications. No significant pericardial effusion. Bones/joints: Displaced fracture of the lateral arch of the right seventh rib. Second displaced fracture involving the lateral arch of the right sixth rib. Trace amount of air within the intercostal muscles on the right at the level of the fracture site with no pneumothorax. Nondisplaced fracture involving the lateral arch of the right fifth rib. Multilevel degenerative disease of the thoracic spine. Diffuse osteopenia. No dislocation. Soft tissues: Unremarkable. Vasculature: Atherosclerotic disease of aorta with no aneurysm. Lymph nodes: Unremarkable. No enlarged lymph nodes. Other findings: Visualized upper abdominal structures are unremarkable. IMPRESSION: 1. Fractures involving the right fifth through seventh ribs with displacement of the sixth and seventh rib fractures. 2. Mild right-sided hydrothorax. No pneumothorax. 3. Mild right lower lobe atelectasis. Electronically signed by: Fanny Beyer MD 07/06/22 01:07 AM Discharge Plan Visit Data Chief Complaint: Fall Stated Complaint: FELL, RIGHT RIB PAIN UNDER BREAST ED Provider: Darinel Cunningham Discharge Problem: Multiple rib fractures Forms Stand Alone Forms: My [facility] [email or web address] Prescriptions Prescriptions: No Action docusate sodium 50 mg Capsule 50 mg PO DAILY risperidone [Risperdal] 0.25 mg Tablet 0.25 mg PO HS calcium carbonate [Calcium 500] 500 mg calcium (1,250 mg) Tablet 500 mg PO BID fluticasone propionate 50 mcg/actuation [place],Suspension 2 spray INTRANASAL DAILY Rx Instructions: administer into each nostril meclizine 25 mg Tablet 25 mg PO TID PRN (Reason: Dizziness) metoprolol succinate 25 mg tablet extended release 24 hr 25 mg PO QAM polyethylene glycol 3350 17 gram Powder In Packet 119 g PO DAILY acetaminophen [Tylenol Arthritis] 650 mg Tablet Extended Release 650 mg PO Q12H cholecalciferol (vitamin D3) 25 mcg (1,000 unit) Tablet 25 mcg PO DAILY multivitamin Tablet 1 tab PO DAILY simvastatin 20 mg tablet 20 mg PO HS warfarin 2 mg tablet 2 mg PO 4XWK Rx Instructions: sat/ sun/ tues/ thurs warfarin 2 mg tablet 3 mg PO 3XWK Rx Instructions: mon/ wed/ fri Referrals Referrals: Asmita Wasserman DO [Primary Care Provider] - Multiple rib fractures Qualifiers: Encounter type: initial encounter Fracture type: closed Laterality: right Qualified Code(s): S22.41XA - Multiple fractures of ribs, right side, initial encounter for closed fracture
[2022-07-05] MEDS ORDERED: SODIUM CHLORIDE 0.9% 500 ML IV SCH (22:00)
[2022-07-05 22:38] LABS: Basophils # (auto) 0.02 K/uL (0-0.2); Basophils % (auto) 0.2 %; Eosinophils # (auto) 0.05 K/uL (0-0.50); Eosinophils % (auto) 0.6 %; Hematocrit (blood only) 36.7 % (37.0-47.0); Hemoglobin 12.2 g/dl (12.0-16.0); Immature Granulocytes # (auto) 0.08 K/uL (0.01-0.20); Lymphocytes # (auto) 0.96 K/uL (1.2-3.4); Lymphocytes % (auto) 11.9 %; Mean Corpuscular Hemoglobin 31.1 pg (25.0-34.0); Mean Corpuscular Hgb Conc 33.2 g/dL (32.0-36.0); Mean Corpuscular Volume 93.6 fL (80.0-100.0); Mean Platelet Volume 10.2 fL (9.4-12.4); Monocytes # (auto) 0.55 K/uL (0.11-0.59); Monocytes % (auto) 6.8 %; Neutrophils # (auto) 6.41 K/uL (1.40-6.50); Neutrophils % (auto) 79.5 %; Platelet Count 165 K/uL (130-400); RDW Coefficient of Variation 13.3 % (11.5-14.5); RDW Standard Deviation 45.6 fL (36.4-46.3); Red Blood Count 3.92 M/uL (4.20-5.40); White Blood Count 8.07 K/ul (4.8-10.8)
[2022-07-05 23:07] LABS: Albumin Level 3.7 gm/dl (3.4-5.0); Anion Gap 8 (3-11); Bilirubin,Total 0.3 mg/dl (0.2-1.0); Calcium 8.9 mg/dl (8.6-10.3); Carbon Dioxide 27 mmol/L (21-32); Chloride 107 mmol/L (98-107); Potassium 4.3 mmol/L (3.5-5.1); Sodium 142 mmol/L (136-145)
[2022-07-05 23:13] LABS: Alanine Aminotransferase 12 U/L (7-52); Albumin Globulin Ratio 1.3 (0.9-2); Alkaline Phosphatase 52 U/L (34-104); Aspartate Aminotransferase 18 U/L (13-39); BUN Creatinine Ratio 25.6 (10-20); Blood Urea Nitrogen 32 mg/dl (6-23); Est GFR (African American) 44.5 ml/min; Est GFR (Non-African American) 38.4 ml/min; Globulin 2.8 gm/dl (2.5-4.0); Glucose 118 mg/dl (70-99(Fasting)); Total Protein 6.5 gm/dl (6.0-8.3)
--- NOTE | 2022-07-06 00:12 | CT Scan Report ---
Exam(s): CT HEAD Without Contrast EXAM: CT Head Without Intravenous Contrast CLINICAL HISTORY: Reason for exam: Trauma, fall on coumadin. TECHNIQUE: Axial computed tomography images of the head/brain without intravenous contrast. Automated exposure control was utilized for the study. A dose lowering technique was utilized adhering to the principles of ALARA. COMPARISON: 10/25/2020. FINDINGS: Brain: Moderate generalized brain atrophy. Decreased attenuation within the deep white matter compatible with microangiopathic white matter disease. No hemorrhage. Ventricles: Unremarkable. No ventriculomegaly. Bones/joints: Unremarkable. No acute fracture. Soft tissues: Unremarkable. Sinuses: Mucosal thickening within the right maxillary sinus most compatible with chronic sinus disease. Remainder of the paranasal sinuses are clear. Mastoid air cells: Unremarkable as visualized. No mastoid effusion. IMPRESSION: 1. Chronic changes as described. No acute intracranial hemorrhage or space-occupying lesion. 2. Right-sided maxillary sinus disease as described. 3. No skull fracture. Electronically signed by: Fanny Beyer MD 07/06/22 00:11 AM
[2022-07-06] MEDS ORDERED: ACETAMINOPHEN 325 MG TAB PO STA (00:39)
--- NOTE | 2022-07-06 01:07 | CT Scan Report ---
Exam(s): CT CHEST Without Contrast EXAM: CT Chest Without Intravenous Contrast CLINICAL HISTORY: Reason for exam: R sided rib pain s/p fall. TECHNIQUE: Axial computed tomography images of the chest without intravenous contrast. Automated exposure control was utilized for the study. A dose lowering technique was utilized adhering to the principles of ALARA. COMPARISON: None. FINDINGS: Lungs: Mild right lower lobe atelectasis. Pleural space: Mild right-sided pleural effusion. Heart: Mild cardiomegaly with coronary artery calcifications. No significant pericardial effusion. Bones/joints: Displaced fracture of the lateral arch of the right seventh rib. Second displaced fracture involving the lateral arch of the right sixth rib. Trace amount of air within the intercostal muscles on the right at the level of the fracture site with no pneumothorax. Nondisplaced fracture involving the lateral arch of the right fifth rib. Multilevel degenerative disease of the thoracic spine. Diffuse osteopenia. No dislocation. Soft tissues: Unremarkable. Vasculature: Atherosclerotic disease of aorta with no aneurysm. Lymph nodes: Unremarkable. No enlarged lymph nodes. Other findings: Visualized upper abdominal structures are unremarkable. IMPRESSION: 1. Fractures involving the right fifth through seventh ribs with displacement of the sixth and seventh rib fractures. 2. Mild right-sided hydrothorax. No pneumothorax. 3. Mild right lower lobe atelectasis. Electronically signed by: Fanny Beyer MD 07/06/22 01:07 AM
[2022-07-06 01:59] LABS: Appearance Urine Clear (Clear); Bacteria Urine Automated 1+ (Negative); Bilirubin Urine Negative (Negative); Blood Urine 1+ (Negative); Color Urine Yellow; Epithelial Cell Urine Auto 20-30 /lpf (0-5); Glucose Urine UA Negative (Negative); Ketones Urine Trace (Negative); Leukocyte Esterase Urine 2+ (Negative); Nitrite Urine Positive (Negative); Protein Urine Negative (Negative); RBC Urine Automated 0-4 /hpf (0-4); Specific Gravity Urine 1.026 (1.000-1.030); Urobilinogen Urine Negative (Negative)
[2022-07-06] MEDS ORDERED: SODIUM CHLORIDE 0.9% 1000ML 1,000 ML IV SCH (05:31)
[2022-07-06] MEDS ORDERED: POLYETHYLENE (MIRALAX) 17 GM PACK PO PRN (05:31)
[2022-07-06] MEDS ORDERED: MoRPHine SULFATE 4 MG/ML 1 ML CARP\\VIAL IV PRN (05:31)
[2022-07-06] MEDS ORDERED: MECLIZINE HCL 25 MG TAB PO PRN (05:31)
[2022-07-06] MEDS ORDERED: PHYTONADIONE 2.5 MG in DEXTROSE 5% 50 ML IV ONE (05:45)
[2022-07-06] MEDS ORDERED: Patient's HEIGHT &/or WEIGHT Needed SCH (05:45)
[2022-07-06] MEDS ORDERED: cefTRIAXone SODIUM 1,000 MG in DEXTROSE 5% AD-VAN 50 ML IV SCH (06:00)
[2022-07-06] MEDS: traMADol HCL 50 MG TABLET PO PRN ×3 (06:40→17:51)
[2022-07-06 08:02] LABS: Basophils # (auto) 0.04 K/uL (0-0.2); Basophils % (auto) 0.4 %; Eosinophils # (auto) 0.07 K/uL (0-0.50); Eosinophils % (auto) 0.7 %; Hematocrit (blood only) 33.7 % (37.0-47.0); Hemoglobin 11.4 g/dl (12.0-16.0); Immature Granulocytes # (auto) 0.44 K/uL (0.01-0.20); Immature Granulocytes % (auto) 4.5 %; Lymphocytes # (auto) 0.66 K/uL (1.2-3.4); Lymphocytes % (auto) 6.8 %; Mean Corpuscular Hemoglobin 31.4 pg (25.0-34.0); Mean Corpuscular Hgb Conc 33.8 g/dL (32.0-36.0); Mean Corpuscular Volume 92.8 fL (80.0-100.0); Monocytes # (auto) 0.42 K/uL (0.11-0.59); Monocytes % (auto) 4.3 %; Neutrophils # (auto) 8.14 K/uL (1.40-6.50); Neutrophils % (auto) 83.3 %; Platelet Count 144 K/uL (130-400); RDW Coefficient of Variation 13.2 % (11.5-14.5); RDW Standard Deviation 44.9 fL (36.4-46.3); Red Blood Count 3.63 M/uL (4.20-5.40); White Blood Count 9.77 K/ul (4.8-10.8)
--- NOTE | 2022-07-06 08:12 | XRay Report ---
XR chest 1V portable HISTORY: rib fractures, hydrothorax right side COMPARISON: Chest 10/25/2020. Chest CT 07/05/2022. FINDINGS: Multiple right-sided rib fractures are again noted. The tiny pneumothorax seen on the prior chest CT is not identified. Trace right pleural effusion persists. The left lung is clear. The heart is normal in size. There are calcified right hilar lymph nodes and a tortuous thoracic aorta. Postop erative changes again noted within the right humerus. IMPRESSION: 1. Multiple right-sided rib fractures again noted. No definite pneumothorax. 2. Trace right pleural effusion persists. ACT 112: Negative or not required by law. Electronically signed by: Nitin Melendrez M.D. 07/06/2022 8:11 AM
[2022-07-06 08:24] LABS: BUN Creatinine Ratio 28.4 (10-20); Calcium 8.6 mg/dl (8.6-10.3); Creatinine Clr Calc Pharmacy 41.3 ml/min; Est GFR (Non-African American) 53.5 ml/min; Magnesium 1.8 mg/dl (1.7-2.4); Potassium 3.9 mmol/L (3.5-5.1)
[2022-07-06 08:30] LABS: INR 2.8 (0.9-1.1); Prothrombin Time 29.2 Seconds (9.0-12.0)
[2022-07-06] MEDS: ACETAMINOPHEN 325 MG TAB PO PRN ×2 (08:48→14:11)
[2022-07-06] MEDS ORDERED: MULTIVITAMIN TAB PO SCH (09:00)
[2022-07-06] MEDS ORDERED: FLUTICASONE PROPIONATE NA SPR 16 GM BTL NAE SCH (09:00)
[2022-07-06] MEDS ORDERED: DOCUSATE SODIUM SYRUP 100 MG/10 ML UDC PO SCH (09:00)
[2022-07-06] MEDS ORDERED: CHOLECALCIFEROL 1,000 UNITS 25 MCG TAB PO SCH (09:00)
[2022-07-06] MEDS ORDERED: CALCIUM CARBONATE 1250MG TAB PO SCH (09:00)
[2022-07-06] MEDS ORDERED: METOPROLOL SUCC 25MG EXT REL TAB PO SCH (09:00)
[2022-07-06] MEDS ORDERED: POLYETHYLENE (MIRALAX) 17 GM PACK PO SCH (09:00)
--- NOTE | 2022-07-06 12:46 | History and Physical Report ---
DATE OF ADMISSION: 07/06/2022 CHIEF COMPLAINT: Status post fall and rib fracture. HISTORY OF PRESENT ILLNESS: This is an 87-year-old female with past medical history significant for hyperlipidemia, hypertension, diastolic dysfunction, history of brain aneurysm, chronic kidney disease stage III, osteoarthritis, Alzheimer dementia, remote history of paroxysmal atrial fibrillation without recurrence as per cardiology notes, on chronic anticoagulation with warfarin, preserved LV systolic function, who lives at home with her and caregivers, was brought in because of fall. Seems to be a mechanical fall. As per caregiver, the patient was getting from a chair when she slipped on the floor and fell on the right side. Seems to did not hit her head. On the imaging studies in the ER. CT of the head was okay. Chest CT showed fractures involving the right 5th through 7th ribs with displacement of 6th and 7th rib fractures, mild right-sided hydrothorax, no pneumothorax, mild right lower lobe atelectasis. ER talked about transferring to higher facility, but her declined and also they wanted to take the patient back home, but agreed to stay overnight. Currently, has gone home and caregiver is with the patient. As per caregiver, the patient has severe dementia, she can tell her name, she can recognize her daughter, and caregiver, but otherwise she has very severe dementia. She eats regular food and walks without any support. Currently, in the ER, she is walking in the room. Could not get any history from the patient . hemodynamically stable, afebrile. ALLERGIES: BACTRIM, PENICILLIN, AND ATORVASTATIN. PAST MEDICAL HISTORY: As mentioned above. PAST SURGICAL HISTORY: Colonoscopy with biopsy, bilateral oviducts, cataract surgery, total hysterectomy. MEDICATIONS: The patient is on Tylenol Arthritis 650 mg p.o. b.i.d., calcium carbonate 500 mg p.o. b.i.d., vitamin D 25 mcg p.o. daily, Colace 150 mg p.o. daily, Flonase 2 sprays intranasal daily, meclizine 25 mg p.o. t.i.d. p.r.n., metoprolol succinate 25 mg daily, multivitamin 1 tablet p.o. daily, MiraLax 119 g daily, Risperdal 0.25 mg p.o. at bedtime, simvastatin 20 mg p.o. at bedtime, warfarin 2 mg 4 times a week and 3 mg 3 times a week. FAMILY HISTORY: Significant for daughter has heart disorder; mother has stroke. SOCIAL HISTORY: , lives with her . No smoking. No alcohol use currently, no drug use. REVIEW OF SYSTEMS: Unobtainable. The patient has severe dementia. PHYSICAL EXAMINATION: GENERAL: The patient is alert and awake, oriented to name, not in acute distress. VITAL SIGNS: Temperature 36.3, pulse 68, respiratory rate 18, blood pressure 143/82, oxygen 99% on room air. HEENT: Pupils equal, round and reactive to light. No facial injuries seen. NECK: No JVD. No neck masses seen. CARDIOVASCULAR: S1 and S2 heard. Regular rate and rhythm. No murmur, no gallop. RESPIRATORY SYSTEM: Normal AP diameter. No accessory muscle use. No wheezing, no crackles. Mild bruising on the lower rib cage on the back side. ABDOMEN: Soft, bowel sounds present, no distention. CENTRAL NERVOUS SYSTEM: Alert and awake, oriented to name. Ambulating okay. No facial droop seen. EXTREMITIES: No edema, no erythema. LABORATORY DATA: WBC 8, hemoglobin 12.2, hematocrit 36.7, platelets 165. INR 3. Sodium 142, potassium 4.3, chloride 107, bicarbonate 27, BUN 32, creatinine 1.2, serum glucose 118, calcium 8.9, total bilirubin 0.3, AST 18, ALT 12, alkaline phosphatase 52. Urinalysis, positive for nitrite and +1 bacteria. SARS-COVID rapid test negative. IMAGING DATA: CT of the chest, which shows fractures involving the right 5th through 7th ribs with displacement of the 6th and 7th rib fractures, mild right- sided hydrothorax, no pneumothorax. Mild right lower lobe atelectasis. CT of the head, right-sided maxillary sinus no acute intracranial findings. No skull fracture. EKG: Sinus rhythm with first-degree AV block at a rate of 67, no acute ST changes seen. ASSESSMENT AND PLAN: This is an 87-year-old female who presents with mechanical fall and right-sided rib fracture. 1. Mechanical fall and right-sided rib fracture 5th through 7th ribs and displaced 6th and 7th ribs. Mild right-sided hydrothorax. Family alvarado not want to transfer to the higher facility but they want to take her back home, but currently ok to stay for observation in the hospital. We will get a repeat chest x-ray in the a.m. Pain control, PT/OT. Possible discharge back home with home health. 2. Urinary tract infection. We will treat with IV and Rocephin. Follow cultures. 3. Remote history of paroxysmal atrial fibrillation. Follows with cardiology. On Coumadin, rate controlled. On metoprolol succinate. INR is 3. Holding Coumadin, giving vitamin K IV 2.5. Follow up with the PCP and cardiology for further continuation of Coumadin. 4. Chronic diastolic congestive heart failure. We will monitor for any volume overload. On metoprolol. 5. Hypertension. On metoprolol succinate. We will monitor the blood pressure. 6. Hyperlipidemia. On statin. 7. Chronic kidney disease, stage III. Cr 1.2. Seems around baseline. 8. Alzheimer dementia, severe. Monitor for delirium. Caregivers going to stay with the patient tonight. 9. Deep venous thrombosis prophylaxis. Sequential compression devices. DISPOSITION: Closely monitor in the medical observation in medical floor. PT/OT. Social service to help with discharge planning. Job ID: [id number] [email or web address]
[2022-07-06] MEDS ORDERED: PHYTONADIONE 5 MG TAB PO STA (13:41)
--- NOTE | 2022-07-06 16:59 | Discharge Summary ---
Date of Service July 06, 2022 Discharge Data Allergies Allergy/AdvReac Type Severity Reaction Status Date / Time Sulfa (Sulfonamide Allergy Intermediate Hives Verified 07/05/22 23:20 Antibiotics) Penicillins Allergy Unknown rash Verified 07/05/22 23:20 atorvastatin Allergy Unknown Verified 07/05/22 23:22 Consultations 07/06/22 01:37 ED Decision to Admit Stat Ordered Studies 07/05/22 21:57 CT head/brain wo con Stat 07/05/22 23:16 CT chest diagnostic wo con Stat Discharge Plan Discharge Items Patient Disposition: Home - Home Health Services Reason For Visit: FALL Discharge Diagnosis: Fall, multiple rib fractures, on anticoagulation Dementia Activity: Per Instructions section Non-emergency contact: Primary Care Provider Call non-emergency contact if: you have any medication questions and your symptoms worsen Follow-up/Referrals: Asmita Wasserman DO [Primary Care Provider] - Diet: Heart Healthy Diet Texture: Easy to Chew Addtl Attending Provider Instructions: Follow up with primary care doctor within a week. For pain, you can use Tylenol 1000 mg 3 times a day, max daily dose of 3,000 mg. For more severe pain, you can use tramadol 25 mg, as needed as prescribed. Continue using incentive spirometer. Do not take warfarin, and discuss with your primary care physician and/or your sales development manager if this should be restarted. It is recommended that you have 24-hour care, and if needed for ambulation, you use a walker. Continue antibiotic treatment for poss. UTI, as prescribed. Pending Studies at Discharge: Yes Studies:: urine cultx Stand-Alone Forms: My [facility], Smoking Cessation Medications and DC Order Prescriptions: New tramadol 50 mg Tablet 25 mg PO Q4H PRN (Reason: pain) Qty: 10 0RF cefuroxime axetil 500 mg tablet 500 mg PO BID 2 Days Qty: 4 0RF Continued docusate sodium 50 mg Capsule 50 mg PO DAILY risperidone [Risperdal] 0.25 mg Tablet 0.25 mg PO HS calcium carbonate [Calcium 500] 500 mg calcium (1,250 mg) Tablet 500 mg PO BID fluticasone propionate 50 mcg/actuation [place],Suspension 2 spray INTRANASAL DAILY Rx Instructions: administer into each nostril meclizine 25 mg Tablet 25 mg PO TID PRN (Reason: Dizziness) metoprolol succinate 25 mg tablet extended release 24 hr 25 mg PO QAM polyethylene glycol 3350 17 gram Powder In Packet 119 g PO DAILY acetaminophen [Tylenol Arthritis] 650 mg Tablet Extended Release 650 mg PO Q12H cholecalciferol (vitamin D3) 25 mcg (1,000 unit) Tablet 25 mcg PO DAILY multivitamin Tablet 1 tab PO DAILY simvastatin 20 mg tablet 20 mg PO HS Discontinued warfarin 2 mg tablet 2 mg PO [id number] Rx Instructions: sat/ sun/ tu/ thurs warfarin 2 mg tablet 3 mg PO [id number] Rx Instructions: mon/ thu/ thu Admission Data Admit Date/Time: 07/06/22 03:24 Attending Provider: Delbert Chapa Admit Provider: Last [place] Primary Care Provider: Asmita Wasserman Other Providers: Last [place] ; [facility]
[2022-07-06] MEDS ORDERED: SIMVASTATIN 20 MG TAB PO SCH (21:00)
[2022-07-06] MEDS ORDERED: risperiDONE 0.5 MG TABLET PO SCH (21:00)
--- NOTE | 2022-07-07 12:34 | Electrocardiogram Report ---
Test Reason : Blood Pressure : / mmHG Vent. 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
== END 2022-07-06 18:35 | disposition home health service (06) ==
LOC: ED 21:37 → 3W 21:37